=== PATIENT | male | born 1965 | race Caucasian/White ===

== ENCOUNTER 2020-08-19 12:48 | Outpatient (NON) | payer BC, SELFPAY ==
[2020-08-25 12:56] LABS: SARS-CoV-2 RNA PCR Positive
== END 2020-08-19 12:49 ==
PROVIDERS: PCP Family Medicine; Visit Provider Family Medicine
DX: U07.1 COVID-19 (principal)
CPT/HCPCS: 87635; C9803; U0003

== ENCOUNTER 2022-10-25 09:53 | Outpatient (CLI) | payer BC, SELFPAY ==
[2022-10-25 10:43] LABS: Influenza A QL RT-PCR Negative (Negative); Influenza B QL RT-PCR Negative (Negative); RSV RNA, RT-PCR Negative (Negative); SARS-CoV-2 RNA PCR Negative
== END 2022-10-25 09:54 | disposition home or self-care (01) ==
LOC: ANHLAB 09:55
PROVIDERS: PCP Family Medicine; Visit Provider Physician Assistant
DX: R50.9 Fever, unspecified (principal); Z20.822 Contact with and (suspected) exposure to COVID-19
CPT/HCPCS: 87637

== ENCOUNTER 2023-11-13 09:08 | Outpatient (CLI) | payer BC, SELFPAY ==
--- NOTE | 2023-11-30 08:48 | WPDSLEEPSTUD ---
Sleep Study Date of Study: 11/13/23 Ordering Provider: Phylicia Eduardo PA-C Interpreting Physician: Yamel Ray MD Sleep Study Type: Polysomnogram Height: 1.78 m Weight: 158.757 kg Body Mass Index: 50.2 Neck Circumference (inches): 20 [place]: 14 Reason for Sleep Study Known TWYLA, needs new equipment; hypersomnolence Sleep History Carroll Reyes is a 58-year-old man with obstructive sleep apnea who has an old device, over 20 years old, needs to have it replaced. He uses CPAP every night although he feels restless on waking up. Compliance cannot be obtained from his machine. He frequently awakens from sleep feeling short of breath. He rarely wakes at night with heartburn, belching or coughing.??He frequently snores, frequently snores loudly enough that others complain. He frequently has trouble sleeping when he has a cold. He frequently wakes up gasping for breath during the night. He frequently has breathing problems at night. He rarely sweats excessively at night. He rarely notices his heart pounding or beating irregularly during the night. He frequently falls asleep during the day. He frequently falls asleep involuntarily, rarely falls asleep while driving. He rarely experiences loss of muscle tone with strong emotion. He occasionally has daytime difficulties due to excessive sleepiness. He frequently has daytime difficulty at work due to excessive sleepiness. He frequently feels paralyzed on waking or falling asleep. He frequently experiences vivid dreams upon waking or falling asleep. He frequently feels afraid of going to sleep. He rarely has nightmares. He frequently recalls his dreams. He frequently has thoughts racing through his mind. He rarely feels sad or depressed. He rarely feels anxiety. He frequently notices parts of his body jerk. He frequently kicks during the night. He rarely feels crawling or aching feelings in his legs. He rarely feels leg pain at night. He constantly has morning jaw pain, and constantly grinds his teeth at night. He occasionally feels bothered by pain during the day, occasionally awakened by pain during the night. He occasionally wakes up feeling stiff in the morning, and he occasionally wakes feeling sore or achy. He occasionally awakens with pain in his neck, spine, or joints. Normal bedtime is between 10 p.m. and midnight, taking 1 hour to fall asleep, typically waking between 2 and 3 times at night to go to the bathroom and then he reads. He may stay awake for an hour. His normal wake time is 7:00 a.m. during the week. On weekends, bedtime is midnight, wake time is between 8:00 a.m. and 9:00 a.m.. He does not take naps during the afternoon or evening. A short nap lasting 10-15 minutes is not refreshing. He is drowsy for an hour after waking. Habits:??Tobacco: Former smoker, quit decades ago Caffeine: 3 cups of coffee a day. Alcohol: none Recreational substances: none PMFSH Past Medical History Medical History Anxiety Cancer of sigmoid Erectile dysfunction Essential (primary) hypertension H/O: gout Low ferritin Mild episode of recurrent major depressive disorder Mixed hyperlipidemia Obstructive sleep apnea Vitamin B12 deficiency Vitamin D deficiency Surgical History Surgical History History of gastric restrictive surgery History of reversal of ileostomy (~2013) Family History Family History Father Hypertension Other Family history of arthritis Family history of heart disease in male family member before age 55 Family history of malignant neoplasm Social History Social History Smoking packs per day: 2 Smoking cigarettes per day: 40.0 Years smoked: 20 Smoking pack-years: 40.00 Smoking status: Former smoker Tobacco type: cigarettes
[2023-12-01 18:29] VITALS: BMI 50.2
--- NOTE | 2023-12-04 14:18 | SLEEP ---
Pt is being credited study from 11/13/2023, due to technical issues w/equipment. Tech was in/out of room and pt not able to get to sleep. Pt states he did not know he would be with out CPAP during the study. Calls were made to [facility] and they stated he has not received anything from them since 2019. At that time we were unable to get a download from them on his card. Dr Ray has stated he can do a CPAP titration study w/sleep aid if we obtain a current 30 day download and he is compliant. We have that, I have called Dr Gomez's office for an updated order/auth. We will schedule patient when this is obtained. Pt is aware of everything.
== END 2023-11-14 03:53 | disposition home or self-care (01) ==
PROVIDERS: PCP Family Medicine; Visit Provider Physician Assistant
DX: G47.33 Obstructive sleep apnea (adult) (pediatric) (principal)
CPT/HCPCS: 95810; 99199

== ENCOUNTER 2023-11-30 11:43 | Emergency (ER) | payer BC, SELFPAY ==
--- NOTE | ~2023-11-30 | XR_ITS ---
Right Forearm AP and lateral views of the right forearm were performed. Clinical History: Foreign body, dog bite Findings: No fracture or dislocation is seen. Osseous alignment in anatomic. Joint spaces are prese rved. There is subcutaneous soft tissue edema over the extensor aspect of the forearm. No definite ra diopaque foreign body. Impression: Subcutaneous soft tissue edema at the extensor aspect of the forearm. No definite radiopaque foreign body. No osseous or articular abnormality. Reviewed, dictated and finalized at [facility]. SITE SPECIALIST Impression: Subcutaneous soft tissue edema at the extensor aspect of the forearm. No defini te radiopaque foreign body. No osseous or articular abnormality.
[2023-11-30 11:48] VITALS: BP 183/108; PULSE 110; RESP 20; TEMP 36.6; O2SAT 97
[2023-11-30] MEDS: HYDROcodone/acetaminophen (*CRX) 5-325 MG TABLET 1 TAB PO (12:38)
--- NOTE | 2023-11-30 13:17 | ED.GENADULT ---
HPI - General Adult General Chief complaint: Animal Bite Stated complaint: dog bite Time Seen by Provider: 11/30/23 12:14 History of Present Illness HPI narrative: patient is a 58-year-old male who presents to the ER with reports of being bit by his dog. It was a pit bull. Is up-to-date on its shots according to his daughter. The dog is owned by his daughter but lives in the home with him. He was reaching for a candy wrapper when the dog bit him in the right forearm and the right posterior chest. It is in the posterior axillary line. No numbness or tingling. His tetanus shot is up-to-date. He has normal strength and range of motion of his hand and wrist. The dog has bit him once previous. Related Data Home Medications Medication Instructions Recorded Confirmed calcium-mag oxide-vitamin D3 250 1 cap PO BID 10/16/19 10/19/23 mg-125 mg-100 unit capsule (Coral Calcium) cyanocobalamin (vitamin B-12) 1,000 mcg IM MONTHLY 10/16/19 10/19/23 1,000 mcg/mL injection kit (B-12 Compliance) multivitamin (Chewable-Cassie tablet) 1 tablet PO DAILY 10/16/19 10/19/23 buspirone 10 mg tablet 10 mg PO BID 11/10/22 10/19/23 Allergies Allergy/AdvReac Type Severity Reaction Status Date / Time No Known Allergies Allergy Verified 11/30/23 11:51 Review of Systems Constitutional: Constitutional: Reports no additional constitutional complaints Musculoskeletal: Musculoskeletal: Reports no additional musculoskeletal complaints Integumentary/Breasts: Skin/Breast: Denies erythema and Denies rash Comments: Bite wound Neurologic: Reports system reviewed and no additional complaints, except as documented [facility] Past Medical History Medical History Anxiety Cancer of sigmoid Erectile dysfunction Essential (primary) hypertension H/O: gout Low ferritin Mild episode of recurrent major depressive disorder Mixed hyperlipidemia Obstructive sleep apnea Vitamin B12 deficiency Vitamin D deficiency Surgical History Surgical History History of gastric restrictive surgery History of reversal of ileostomy (~2013) Family History Family History Father Hypertension Other Family history of arthritis Family history of heart disease in male family member before age 55 Family history of malignant neoplasm Social History Social History Smoking packs per day: 2 Smoking cigarettes per day: 40.0 Years smoked: 20 Smoking pack-years: 40.00 Smoking status: Former smoker Tobacco type: cigarettes Second hand tobacco smoke exposure: Yes Smoking end date: 11/06/98 Alcohol intake: current Alcohol use details: RARE Substance use: never Substance use type: does not use Lack of Transportation: No Lack of Food: Never True Current Housing: I Have Housing Concerned About Future Housing: No Difficulty Paying Gas/Electric Bills: No Difficulty Paying for Meds: No Currently Unemployed: No Education: Master's Degree or Higher Difficulty w/ Childcare or Family Care: No Living arrangements: with family Occupation/Education: occupation Gender identity (if verbalized by the patient): Male Spiritual care concerns: No Agree to blood products: Yes Exam Narrative: GENERAL: Well-appearing, well-nourished, and in no acute distress. HEAD: Normocephalic, atraumatic. ENT: Mucous membranes moist EXTREMITIES: Normal range of motion. No edema. SKIN: Warm, dry. Right forearm bite wound with several areas that are deep and poorly approximated. There is superficial abrasions from bite wound to the right infra-axillary area posteriorly. NEURO: Alert and oriented x3. PSYCH: Normal mood and affect. Course Course Emergency Course: Patient resting comfortably. Areas of the b
== END 2023-11-30 14:00 | disposition home or self-care (01) ==
PROVIDERS: Emergency Provider Emergency Medicine; PCP Family Medicine
DX: S51.851A Open bite of right forearm, initial encounter (principal); I10 Essential (primary) hypertension; M10.9 Gout, unspecified; E78.2 Mixed hyperlipidemia; E53.8 Deficiency of other specified B group vitamins; E55.9 Vitamin D deficiency, unspecified; G47.33 Obstructive sleep apnea (adult) (pediatric); F41.9 Anxiety disorder, unspecified; F33.9 Major depressive disorder, recurrent, unspecified; Z87.891 Personal history of nicotine dependence; Z85.038 Personal history of other malignant neoplasm of large intestine; W54.0XXA Bitten by dog, initial encounter
CPT/HCPCS: 12001; 73090; 99283; A9270

== ENCOUNTER 2023-12-12 09:03 | Outpatient (CLI) | payer BC, SELFPAY ==
--- NOTE | 2024-01-02 14:23 | WPDSLEEPSTUD ---
Sleep Study Date of Study: 12/12/23 Ordering Provider: Marcela Gomez MD Interpreting Physician: Helen Yusuf, Sleep Study Type: CPAP Titration Height: 1.73 m Weight: 158.757 kg Body Mass Index: 53.1 Neck Circumference (inches): 18.5 [place]: 14 Reason for Sleep Study There was an attempted polysomnogram on 11/13/2023 but due to technical difficulty we were unable to get enough data and the patient was unable to sleep. Sleep History Carroll Reyes is a 58-year-old man with? obstructive sleep apnea who has an old device, over 20 years old, needs to have it replaced.? He uses CPAP every night although he feels restless on waking up.? Compliance cannot be obtained from his machine.? He frequently awakens from sleep feeling short of breath. He rarely wakes at night with heartburn, belching or coughing.??He frequently snores, frequently snores loudly enough that others complain. He frequently has trouble sleeping when he has a cold. He frequently wakes up gasping for breath during the night. He frequently has breathing problems at night. He rarely sweats excessively at night. He rarely notices his heart pounding or beating irregularly during the night. He frequently falls asleep during the day. He frequently falls asleep involuntarily, rarely falls asleep while driving. He rarely experiences loss of muscle tone with strong emotion. He occasionally has daytime difficulties due to excessive sleepiness. He frequently has daytime difficulty at work due to excessive sleepiness.? He frequently feels paralyzed on waking or falling asleep. He frequently experiences vivid dreams upon waking or falling asleep. He frequently feels afraid of going to sleep. He rarely has nightmares. He frequently recalls his dreams. He frequently has thoughts racing through his mind. He rarely feels sad or depressed. He rarely feels anxiety. He?frequently notices parts of his body jerk. He?frequently kicks during the night.?He rarely feels crawling or aching feelings in his legs. He rarely feels leg pain at night. He?constantly has morning jaw pain,? and?constantly grinds his teeth at night.? He occasionally feels bothered by pain during the day, occasionally awakened by pain during the night. He occasionally wakes up feeling stiff in the morning, and he? occasionally wakes feeling sore or achy.? He? occasionally awakens with pain in his neck, spine, or joints. Normal bedtime is between 10 p.m. and midnight, taking 1 hour to fall asleep, typically waking between 2 and 3 times at night to go to the bathroom and then he reads.? He may stay awake for an hour.? His normal wake time is 7:00 a.m. during the week.? On weekends, bedtime is midnight, wake time is between 8:00 a.m. and 9:00 a.m..? He does not take naps during the afternoon or evening.? A short nap lasting 10-15 minutes is not refreshing.? He is drowsy for an hour after waking. Habits:??Tobacco:? Former smoker, quit decades ago? ? ? Caffeine: 3 cups of coffee a day. ? Alcohol: none ? ? Recreational substances: none PMFSH Past Medical History Medical History Anxiety Cancer of sigmoid Erectile dysfunction Essential (primary) hypertension H/O: gout Low ferritin Mild episode of recurrent major depressive disorder Mixed hyperlipidemia Obstructive sleep apnea Vitamin B12 deficiency Vitamin D deficiency Surgical History Surgical History History of gastric restrictive surgery History of reversal of ileostomy (~2013) Family History Family History Father Hypertension Other Family history of arthritis Family history of heart disease in male family member before age 55 Family history of malignant neoplasm Social History Social History Smoking packs per day: 2 Smoking cigarettes per day:
[2024-01-02 14:25] VITALS: BMI 53.1
== END 2023-12-13 07:01 | disposition home or self-care (01) ==
LOC: ANHCSM 09:05
PROVIDERS: PCP Family Medicine; Visit Provider Family Medicine
DX: G47.33 Obstructive sleep apnea (adult) (pediatric) (principal); G47.61 Periodic limb movement disorder
CPT/HCPCS: 95811

== ENCOUNTER 2024-02-13 07:53 | Emergency (ER) | payer BC, SELFPAY ==
--- NOTE | ~2024-02-13 | XR_ITS ---
EXAMINATION: XR tibia fibula LT 2V DATE: 02/13/2024 09:14 INDICATION: Dog bite with puncture wound at the lateral side of the left lower leg TECHNIQUE: Anteroposterior and lateral views of the left tibia and fibula were obtained. COMPARISON: None. FINDINGS: Alignment is normal. No fracture. Joint spaces are normal. Prominent enthesophytes at the proximal di stal patellar tendon. No left knee joint effusion. Small focus of lucent soft tissue gas and minimal subcutaneous edema at the lateral aspect of the proximal left calf consistent with reported history o f dog bite with puncture wound. No radiopaque foreign bodies. IMPRESSION: 1. No radiopaque foreign bodies or acute osseous abnormality. Reviewed, dictated and finalized at location B.
--- NOTE | ~2024-02-13 | XR_ITS ---
EXAMINATION: XR hand LT min 3V DATE: 02/13/2024 09:13 INDICATION: Dog bite with puncture wound at the dorsum of the hand at the level of the fourth metacar pal. TECHNIQUE: Posteroanterior, oblique and lateral views of the left hand were obtained. COMPARISON: None. FINDINGS: Bone alignment is normal. No fracture. Mild osteoarthritis at the distal radioulnar, triscaphe, first carpometacarpal and a few predominant distal interphalangeal joints. Soft tissue swelling with small amount of lucent soft tissue gas at the ulnar/dorsal aspect of the hand consistent with their report ed history of a puncture wound. No radiopaque foreign bodies. IMPRESSION: 1. No radiopaque foreign bodies or acute osseous abnormality. Reviewed, dictated and finalized at location B.
[2024-02-13 08:07] VITALS: BP 165/88; PULSE 83; RESP 20; TEMP 36.9; O2SAT 97
[2024-02-13] MEDS: ACETAMINOPHEN 325 MG TABLET 650 MG PO (08:25)
[2024-02-13] MEDS: MORPHINE SULFATE INJ (*CRX) 10 MG/ML AMP 6 MG IM (09:04)
[2024-02-13 09:38] VITALS: BP 155/87; PULSE 74; RESP 15; O2SAT 96
--- NOTE | 2024-02-13 10:21 | ED.ANIMALBIT ---
HPI - Animal Bite General Chief Complaint: Animal Bite Stated Complaint: dog bite Time Seen by Provider: 02/13/24 08:03 Source: patient Mode of arrival: ambulatory Limitations: no limitations History of Present Illness HPI narrative: 58-year-old with a history of hypertension, gout here with complaints of dog bite to his right hand and left calf sustained this morning. Patient states that is a rescue dog which is completely immunized. In the also states that he is up-to-date on his tetanus. He had similar bite 2 months ago. Onset (ago): hour(s) (1) Animal: dog Description of animal: household pet Mechanism: bite Location - Extremities: Left: lower leg and Right: hand Pain description: constant Context: unprovoked Associated symptoms: none Related Data Patient tetanus UTD: Yes Home Medications Medication Instructions Recorded Confirmed calcium-mag oxide-vitamin D3 250 1 cap PO BID 10/16/19 01/18/24 mg-125 mg-100 unit capsule (Coral Calcium) cyanocobalamin (vitamin B-12) 1,000 mcg IM MONTHLY 10/16/19 01/18/24 1,000 mcg/mL injection kit (B-12 Compliance) multivitamin (Chewable-Cassie tablet) 1 tablet PO DAILY 10/16/19 01/18/24 buspirone 10 mg tablet 10 mg PO BID 11/10/22 01/18/24 Allergies Allergy/AdvReac Type Severity Reaction Status Date / Time bee venom protein (honey bee) Allergy Swelling Verified 02/13/24 07:54 [bees] Review of Systems Review of Systems: All systems reviewed & are unremarkable except as noted in HPI and below Constitutional: Constitutional: Reports no additional constitutional complaints Eyes: Eyes: Reports no additional eye complaints ENT: Reports system reviewed and no additional complaints, except as documented Cardiovascular: Cardiovascular: Reports no additional cardiovascular complaints Respiratory: Respiratory: Reports no additional respiratory complaints Gastrointestinal: Gastrointestinal: Reports no additional gastrointestinal complaints Musculoskeletal: Musculoskeletal: Reports as per HPI Neurologic: Reports system reviewed and no additional complaints, except as documented Psychiatric: Psychiatric: Reports no additional psychiatric complaints PMFSH Past Medical History Medical History Anxiety Cancer of sigmoid Erectile dysfunction Essential (primary) hypertension H/O: gout Low ferritin Mild episode of recurrent major depressive disorder Mixed hyperlipidemia Obstructive sleep apnea Prediabetes Vitamin B12 deficiency Vitamin D deficiency Surgical History Surgical History History of gastric restrictive surgery History of reversal of ileostomy (~2013) Family History Family History Father Hypertension Other Family history of arthritis Family history of heart disease in male family member before age 55 Family history of malignant neoplasm Social History Social History Smoking packs per day: 2 Smoking cigarettes per day: 40.0 Years smoked: 20 Smoking pack-years: 40.00 Smoking status: Former smoker Tobacco type: cigarettes Second hand tobacco smoke exposure: Yes Smoking end date: 11/06/98 Alcohol intake: current Alcohol use details: RARE Substance use: never Substance use type: does not use Lack of Transportation: No Lack of Food: Never True Current Housing: I Have Housing Concerned About Future Housing: No Difficulty Paying Gas/Electric Bills: No Difficulty Paying for Meds: No Currently Unemployed: No Education: Master's Degree or Higher Difficulty w/ Childcare or Family Care: No Living arrangements: with family Occupation/Education: occupation Gender identity (if verbalized by the patient): Male Spiritual care concerns: No Agree to blood products: Yes Exam Narrative:
== END 2024-02-13 10:49 | disposition home or self-care (01) ==
PROVIDERS: Emergency Provider Family Medicine; PCP Family Medicine
DX: S61.451A Open bite of right hand, initial encounter (principal); S81.852A Open bite, left lower leg, initial encounter; I10 Essential (primary) hypertension; E78.2 Mixed hyperlipidemia; E53.8 Deficiency of other specified B group vitamins; E55.9 Vitamin D deficiency, unspecified; G47.33 Obstructive sleep apnea (adult) (pediatric); M10.9 Gout, unspecified; F33.9 Major depressive disorder, recurrent, unspecified; F41.9 Anxiety disorder, unspecified; Z85.038 Personal history of other malignant neoplasm of large intestine; Z87.891 Personal history of nicotine dependence; W54.0XXA Bitten by dog, initial encounter
CPT/HCPCS: 12004; 73130; 73590; 96372; 99284; A9270; J2270

== ENCOUNTER 2024-03-28 09:37 | Emergency (ER) | payer BC, SELFPAY ==
--- NOTE | ~2024-03-28 | CT_ITS ---
EXAMINATION: CT abdomen pelvis w con DATE: 03/28/2024 11:59 INDICATION: Abdominal pain. History of rectal cancer. TECHNIQUE: Computed tomography (CT) of the abdomen and pelvis was performed with 100 CC Omnipaque 350 intravenous contrast. Automated exposure control and iterative reconstruction technique were employe d. Exam dose: 1829.81 mGy-cm total exam DLP. COMPARISON: 08/16/2016 CT chest abdomen pelvis FINDINGS: The lung bases are clear. Normal heart size. No pericardial or pleural effusion. Small sliding hiatal hernia. Diffuse hepatic steatosis. No hepatic space-occupying mass lesion. No bowel wall thickening or perich olecystic fluid or fat stranding. No bile duct or pancreatic duct dilatation. No pancreatic mass lesi on or calcification. Normal splenic size. Normal morphology of the adrenal glands. There is an approximately 3 mm left ureter vesicle junction calculus with left nephromegaly, mild lef t hydroureteronephrosis and prominent perinephric and periureteral stranding. Approximately 2 mm nonobstructing left renal calculus. No other urinary tract calculi or any hydroure teronephrosis on the right. The urinary bladder is relatively evacuated. Minimal prostate calcificati on. Normal caliber and mild atherosclerotic calcification of the abdominal aorta. No intraperitoneal or r etroperitoneal or pelvic mass lesion or adenopathy or ascites. Status post gastric bypass surgery. Suture lines are noted at the rectosigmoid and distal sigmoid area. Normal appendix.. No bowel obstruction or intraperitoneal free air is evident. Small bilateral fat-containing hernias, larger on the right. Small fat-containing umbilical hernia. Approximately 3 cm wide mid anterior right abdominal wall hernia containing 2 loops of small bowel; t his hernia is situated at the level of and 9 cm to the right of the umbilicus. No suspicious osteolytic or osteoblastic lesions. IMPRESSION: 3 mm left ureterovesical junction calculus with mild left hydroureteronephrosis, perinephric and nitza ureteral stranding, left nephromegaly 2 mm nonobstructing left renal calculus Status post gastric bypass surgery with postoperative change at the rectosigmoid. Diffuse hepatic steatosis Small sliding hiatal hernia Normal appendix 3. Similar wide mid anterior right abdominal wall hernia containing 2 loops of nonobstructed small donavan wel Reviewed, dictated and finalized at [facility]. Reviewed, dictated and finalized at location [facility]. IMPRESSION: 3 mm left ureterovesical junction calculus with mild left hydroureteronephrosis , perinephric and periureteral stranding, left nephromegaly 2 mm nonobstructing left renal calculus Status post gastric bypass surgery with postoperative change at the rectosigmoi d. Diffuse hepatic steatosis Small sliding hiatal hernia Normal appendix 3. Similar wide mid anterior right abdominal wall hernia containing 2 loops of nonobstructed small bowel
[2024-03-28 09:38] VITALS: BP 209/89; PULSE 79; RESP 16; TEMP 36.5; O2SAT 100
[2024-03-28 10:43] LABS: Basophils Percent Auto 0.1 % (0.2-1.2); Eosinophils Percent Auto 0.1 % (0-4.4); Hematocrit 47.1 % (42.0-52.0); Hemoglobin 14.8 g/dL (14.0-18.0); Immature Granulocyte Absolute 0.01 K/mm3 (0.00-0.031); Immature Granulocyte Percent A 0.1 % (0-0.5); Lymphocytes Absolute Auto 0.46 K/mm3 (0.9-3.2); Mean Corpuscular HGB Conc 31.4 g/dl (32-36); Mean Corpuscular Hemoglobin 26.6 pg (26-34); Mean Corpuscular Volume 84.6 fl (80-100); Mean Platelet Volume 8.9 fl (7.4-10.4); Monocytes Absolute Auto 0.4 K/mm3 (0.1-0.6); Monocytes Percent Auto 5.4 % (2.6-8.5); Neutrophils Absolute Auto 6.7 K/mm3 (1.3-6.7); Neutrophils Percent Auto 88.3 % (45.5-73.1); Platelet Count Result 222 k/mm3 (150-375); Red Blood Count 5.57 M/mm3 (4.6-6.20); Red Cell Distribution Width 14.3 % (11.5-14.5); White Blood Count 7.6 K/mm3 (4.5-10.0)
[2024-03-28 10:52] LABS: Alanine Aminotransferase 37 U/L (6-50); Albumin Level 4.5 g/dL (3.5-5.1); Alkaline Phosphatase 72 U/L (38-126); Anion Gap 9 mmol/L (4-12); Aspartate Amino Transferase 35 U/L (17-59); Bilirubin,Total 0.7 mg/dL (0.2-1.3); Blood Urea Nitrogen 10 mg/dL (9-20); Calcium 8.5 mg/dL (8.4-10.2); Carbon Dioxide 25 mmol/L (22-30); Chloride 108 mmol/L (98-107); Estimated CRCL calculation 97 ml/min; Estimated Glomerular Filt Rate > 60; Glucose 156 mg/dL (65-110); Lipase 67 U/L (23-300); Sodium 142 mmol/L (137-145)
[2024-03-28] MEDS: ONDANSETRON INJ 4 MG/2 ML VIAL IV PUSH (11:37)
[2024-03-28] MEDS: MORPHINE SULFATE (*CRX) 4 MG/ML INJ IV PUSH (11:43)
[2024-03-28 11:46] VITALS: BP 170/80; PULSE 105; RESP 16; O2SAT 99
[2024-03-28] MEDS: SODIUM CHLORIDE 0.9% IV 1,000 ML 999 ML IV CONT (12:15)
--- NOTE | 2024-03-28 12:16 | ED.ABDPAIN ---
HPI - Abdominal Pain General Chief Complaint: Abdominal Pain Stated Complaint: abd pain Time Seen by Provider: 03/28/24 10:25 Source: patient Mode of arrival: ambulatory Limitations: no limitations History of Present Illness HPI narrative: Patient is a 58-year-old male who presents the ED with report of lower abdominal discomfort. Patient reports pain began around 5:00 a.m. this morning. Present throughout both lower abdomen, radiates around to his left lower back. The pain has been constant since onset. He developed nausea and vomiting. Notes that he was unable to keep down his pain medication or high blood pressure medication. Does report diarrhea for past 2 days, denies rectal bleeding or melena, fevers, dysuria, hematuria. He does have history of kidney stones. Patient is currently on semaglutide for weight loss. Related Data Home Medications Medication Instructions Recorded Confirmed calcium-mag oxide-vitamin D3 250 1 cap PO BID 10/16/19 02/23/24 mg-125 mg-100 unit capsule (Coral Calcium) cyanocobalamin (vitamin B-12) 1,000 mcg IM MONTHLY 10/16/19 02/23/24 1,000 mcg/mL injection kit (B-12 Compliance) multivitamin (Chewable-Cassie tablet) 1 tablet PO DAILY 10/16/19 02/23/24 buspirone 10 mg tablet 10 mg PO BID 11/10/22 02/23/24 Allergies Allergy/AdvReac Type Severity Reaction Status Date / Time bee venom protein (honey bee) Allergy Swelling Verified 03/28/24 09:41 [bees] Review of Systems Review of Systems: CONSTITUTIONAL: Denies fever, chills, or sweats. CARDIOVASCULAR: Denies chest pain. RESPIRATORY: Denies dyspnea. GASTROINTESTINAL: See HPI. GENITOURINARY: Denies dysuria or hematuria. MUSCULOSKELETAL: See HPI. All systems reviewed & are unremarkable except as noted in HPI and below PMFSH Past Medical History Medical History Anxiety Cancer of sigmoid Erectile dysfunction Essential (primary) hypertension H/O: gout Low ferritin Mild episode of recurrent major depressive disorder Mixed hyperlipidemia Obesity, morbid, BMI 40.0-49.9 Obstructive sleep apnea Prediabetes Vitamin B12 deficiency Vitamin D deficiency Surgical History Surgical History History of gastric restrictive surgery History of reversal of ileostomy (~2013) Family History Family History Father Hypertension Other Family history of arthritis Family history of heart disease in male family member before age 55 Family history of malignant neoplasm Social History Social History Smoking packs per day: 2 Smoking cigarettes per day: 40.0 Years smoked: 20 Smoking pack-years: 40.00 Smoking status: Former smoker Tobacco type: cigarettes Second hand tobacco smoke exposure: Yes Smoking end date: 11/06/98 Alcohol intake: current Alcohol use details: RARE Substance use: never Substance use type: does not use Lack of Transportation: No Lack of Food: Never True Current Housing: I Have Housing Concerned About Future Housing: No Difficulty Paying Gas/Electric Bills: No Difficulty Paying for Meds: No Currently Unemployed: No Education: Master's Degree or Higher Difficulty w/ Childcare or Family Care: No Living arrangements: with family Occupation/Education: occupation Gender identity (if verbalized by the patient): Male Spiritual care concerns: No Agree to blood products: Yes Exam Narrative: GENERAL: Uncomfortable appearing, morbidly obese with BMI of 48.9, non-toxic, in mild acute distress due to pain. HEAD: Normocephalic, atraumatic. RESPIRATORY: Airway patent, respirations nonlabored. Clear to auscultation bilaterally, no rales, rhonchi, wheezing. CARDIOVASCULAR: Regular rate and rhythm without murmurs, rubs, or gal
[2024-03-28] MEDS: KCL 20 MEQ/SW 100 ML 100 ML 50 MEQ IVPB (12:17)
--- NOTE | 2024-03-28 12:46 | PC.NURSE ---
Lab called to add on magnesium level
[2024-03-28 13:00] LABS: Magnesium 1.7 mg/dL (1.6-2.3)
[2024-03-28 13:12] LABS: Appearance Urine Cloudy (Clear); Bacteria Urine None Seen /hpf; Bilirubin Urine Negative (Negative); Blood Urine 3+ (Negative); Color Urine Yellow (Yellow); Glucose Urine UA Negative (Negative); Ketones Urine Negative (Negative); Leukocyte Esterase Ur Trace LEU/UL (Negative); Need Manual Microscopic Reviewed; Nitrate Urine Negative (Negative); Protein Urine Trace mg/dL (Negative); RBC Urine >100 /hpf (0-2); Specific Grav Ur 1.023 (1.001-1.035); Squamous Epithelial Cell Urine None Seen /hpf (Few); WBC Urine 0-5 /hpf (0-3); pH Urine 5.5 (5.0-9.0)
[2024-03-28 13:15] LABS: Add Urine Microscopic? YES
[2024-03-28] MEDS: KETOROLAC 30 MG/ML VIAL (*BKC) IV PUSH (13:22)
[2024-03-28] MEDS: POTASSIUM CHLORIDE 20 MEQ ER TABLET 40 MEQ PO (13:22)
[2024-03-28 14:32] VITALS: BP 159/83; PULSE 100; RESP 15; TEMP 36.9; O2SAT 99
== END 2024-03-28 14:34 | disposition home or self-care (01) ==
PROVIDERS: Student in an Organized Health Care Education/Training Program; Emergency Provider Physician Assistant; PCP Family Medicine
DX: N13.2 Hydronephrosis with renal and ureteral calculous obstruction (principal); I10 Essential (primary) hypertension; E78.2 Mixed hyperlipidemia; E66.01 Morbid (severe) obesity due to excess calories; Z68.42 Body mass index [BMI] 45.0-49.9, adult; E53.8 Deficiency of other specified B group vitamins; E55.9 Vitamin D deficiency, unspecified; R73.03 Prediabetes; M10.9 Gout, unspecified; G47.33 Obstructive sleep apnea (adult) (pediatric); F41.9 Anxiety disorder, unspecified; Z98.84 Bariatric surgery status; Z87.442 Personal history of urinary calculi; Z85.038 Personal history of other malignant neoplasm of large intestine; Z87.891 Personal history of nicotine dependence; K76.0 Fatty (change of) liver, not elsewhere classified; K44.9 Diaphragmatic hernia without obstruction or gangrene; K43.9 Ventral hernia without obstruction or gangrene
CPT/HCPCS: 36415; 74177; 80053; 81001; 83690; 83735; 85025; 96365; 96366; 96375; 99284; A9270; J1885; J2270; J2405; J3480; J7030; Q9967

== ENCOUNTER 2024-04-09 10:41 | Outpatient (CLI) | payer BC, SELFPAY ==
--- NOTE | ~2024-04-09 | CT_ITS ---
Non-contrast CT scan of the Abdomen and Pelvis Clinical indication: Left ureteral stone Technique: 2.5 mm axial scans were obtained through the abdomen and pelvis without intravenous or or al contrast. Dose reduction technique was used on this scan by utilizing automated exposure control a nd iterative reconstruction technique. The dose-length product (DLP) was 1151.87 mGy-cm. COMPARISON: 03/28/2024 Findings: Images through the lung bases reveal no abnormalities. There is no evidence of renal or ureteral calculi. The kidneys and the ureters are nondilated. There is diffuse hepatic steatosis. The spleen, pancreas, gallbladder, and adrenals appear normal. T here is no aortic aneurysm. There is no evidence of bowel obstruction. There is evidence of prior gastric surgery. Rectosigmoid a nastomosis noted. Large right-sided spigelian/incisional hernia is present, containing moderate mesen teric fat and multiple small bowel loops. Images through the pelvis were performed. There is no evidence of ascites or lymphadenopathy. Urinary bladder unremarkable. No pelvic mass seen. No ascites. Impression: No renal, ureteral, or bladder stone. No hydronephrosis. Large right-sided spigelian/incisional hernia, containing mesenteric fat and multiple bowel loops. No bowel obstruction or bowel wall thickening. Diffuse hepatic steatosis. Reviewed, dictated and finalized at [facility]. Impression: No renal, ureteral, or bladder stone. No hydronephrosis. Large right-sided spigelian/incisional hernia, containing mesenteric fat and mu ltiple bowel loops. No bowel obstruction or bowel wall thickening. Diffuse hepatic steatosis.
== END 2024-04-09 10:42 ==
PROVIDERS: PCP Family Medicine; Visit Provider Physician Assistant
DX: K43.2 Incisional hernia without obstruction or gangrene (principal); K76.0 Fatty (change of) liver, not elsewhere classified
CPT/HCPCS: 74176

== ENCOUNTER 2024-09-24 10:45 | Outpatient (CLI) | payer BC, SELFPAY ==
--- NOTE | ~2024-09-24 | MM_ITS ---
EXAMINATION: MM diagnostic jose luis BI w chrissy HISTORY: Bilateral breast tenderness/lumpiness TECHNIQUE: 3-D tomosynthesis images of the breasts were performed and synthetic 2-D images were gener ated. CAD analysis was submitted and interpreted. COMPARISON: None BREAST PARENCHYMAL COMPOSITION:Not Dense. The breasts are almost entirely fatty FINDINGS: No suspicious mass lesion or microscopic calcifications in either breast. There is mild rig ht gynecomastia. IMPRESSION: No mammographic evidence for malignancy. Mild right gynecomastia. BI-RADS Category 2: Benign finding(s). Reviewed, dictated and finalized at location . RATORY TECHNICIAN
== END 2024-09-24 10:46 | disposition home or self-care (01) ==
PROVIDERS: PCP Family Medicine; Visit Provider Family Medicine
DX: N63.10 Unspecified lump in the right breast, unspecified quadrant (principal)
CPT/HCPCS: 77062; 77066; G0279

== ENCOUNTER 2025-05-14 06:07 | Emergency (ER) | payer BC, SELFPAY ==
--- NOTE | ~2025-05-14 | CT_ITS ---
Non-contrast CT scan of the Abdomen and Pelvis Clinical indication: Flank pain Technique: 2.5 mm axial scans were obtained through the abdomen and pelvis without intravenous or or al contrast. Dose reduction technique was used on this scan by utilizing automated exposure control a nd iterative reconstruction technique. The dose-length product (DLP) was 1681.08 mGy-cm. COMPARISON: 04/09/2024 Findings: Images through the lung bases reveal no abnormalities. 2 mm distal left ureteral stone present with mild left hydroureteronephrosis. No right renal or right ureteral stone. No right hydronephrosis. There is diffuse hepatic steatosis. The spleen, pancreas, gallbladder, and adrenals appear normal. T here is no aortic aneurysm. There is no evidence of bowel obstruction. There is a large right-sided spigelian hernia containing m esenteric fat and several small bowel loops. Rectosigmoid anastomosis noted. Images through the pelvis were performed. There is no evidence of ascites or lymphadenopathy. Urinary bladder collapsed around a Crooks catheter. No pelvic mass evident. No ascites. Impression: 2 mm distal left ureteral stone with mild left hydroureteronephrosis. Diffuse hepatic steatosis. Large right-sided spigelian hernia containing mesenteric fat and several small bowel loops. No bowel obstruction. Reviewed, dictated and finalized at location . Impression: 2 mm distal left ureteral stone with mild left hydroureteronephrosis. Diffuse hepatic steatosis. Large right-sided spigelian hernia containing mesenteric fat and several small bowel loops. No bowel obstruction.
--- OUTSIDE RECORDS SUMMARY | 2025-05-14 06:09 | XMS_ITS | Referral Summary ---
Author Organization [facility] Address [address] [place] [address] Care Team Providers Care Cooling Tower Technician Name Role Phone Marcela Gomez MD Primary Care Provider Encounters Date Type Department Care Team Description 04/11/2025 9:21 AM CDT - 04/11/2025 11:59 PM CDT Hospital Encounter [facility] - Breast Imaging [address] [place] [id number] Gynecomastia Discharge Disposition: Discharge to home or self care 04/11/2025 9:15 AM CDT Office Visit [facility] [address] [place] [phone] Camryn Kay NP Breast pain in male (Primary Dx); Hypertrophy of male breast; Gynecomastia, male 04/02/2025 Orders Only [facility] [address] [place] [address] 8 [place] [phone] Camryn Kay NP Gynecomastia (Primary Dx) 03/19/2025 Telephone [facility] [address] [place] [address] 8 [place] [phone] Camryn Kay NP Cancel 03/17/2025 4:37 PM CDT - 03/17/2025 11:59 PM CDT Hospital Encounter [facility] [address] [place] [phone] Discharge Disposition: Discharge to home or self care 03/11/2025 Orders Only [facility] [address] [place] [phone] Camryn Kay NP 03/06/2025 Orders Only [facility] [address] [place] [phone] Yesenia Escobar RN Breast pain (Primary Dx); Breast pain in male from Last 3 Months Allergies Active Allergy Reactions Criticality Noted Date Comments Venom-Honey Bee Swelling Medium 05/11/2017 Medications lisinopril (PRINIVIL,ZESTR IL) 20 mg tablet daily. 06/11/2015 Active BD INSULIN SYRINGE 1 mL 25 x 1 syringe 11/21/2018 Active cyanocobalamin (Vitamin B-12) 1,000 mcg/mL injection 11/21/2018 Active CHOLECALCIFEROL , VITAMIN D3, ORAL Take by mouth Active bupropion HCl (WELLBUTRIN ORAL) Take by mouth Active calcium citrate 250 mg calcium tablet tabletIndicatio ns:supplement Take 2 tablets (500 mg total) by mouth daily Active Wegovy 2.4 mg/0.75 mL auto-injector Inject 0.75 mL (2.4 mg total) under the skin every 7 days 10/18/2024 Active Trintellix 10 mg tablet Take 1 tablet (10 mg total) by mouth daily 10/25/2024 Active Active Problems Problem Noted Date Diagnosed Date Binge eating disorder 11/19/2024 Major depression, single episode, in complete re mission 11/19/2024 Rectal cancer 10/06/2020 Overview (10/06/2020): Added automatically from request for surgery [id number] Rectal adenocarcinoma 08/28/2018 History of rectal cancer 05/17/2018 Kidney stones 01/15/2015 Social History Tobacco Use Types Packs/Day Years Used Date Smoking Tobacco: Former Cigarettes 2 11 1 989 - 2000 Passive Smoke Exposure: Past Smokeless Tobacco: Never Tobacco Cessation:Counseling Given: Not Answered Alcohol Use Standard Drinks/Week Comments Yes 0 (1 standard drink = 0.6 oz pur e alcohol) rare AUDIT-C Answer Date Recorded Q1: How often do you have a drink containing alc ohol? Monthly or less 11/19/2024 Q2: How many drinks containi ng alcohol do you have on a typical day when you are drinking? 1 or 2 11/19/2024 Q3: How often do you have si x or more drinks on one occasion? Never 11/19/2024 Sex and Gender Information Value Date Recorded Sex Assigned at Not on file Legal Sex Male 8:45 PM [facility] Gender Identity Not on file Sexual Orientation Not on file Last Filed Vital Signs Vital Sign Reading Time Taken Comments Blood Pressure 198/115 11/19/2024 2:13 PM [facility] Pulse 104 11/19/2024 2:13 PM [facility] Temperature 36 C (96.8 F) 01/07/2021 8:23 AM [facility]IOLOG[facility] Respiratory Rate 22 01/07/2021 8:45 AM [facility] RADIOLOG[facility] Oxygen Saturation 90% 11/19/2024 2:13 PM [facility] RADIOLOG[facility] Inhaled Oxygen Concentration - - Weight 155.4 kg (342 lb 9.6 oz) 04/11/2025 9:06 AM CDT Height 172 cm (5' 7.72) 04/11/2025 9:06 AM CDT Body Mass Index 52.53 04/11/2025 9:06 AM CDT Plan of Treatment Not on file Procedures Procedure Name Priority Date/Time Associated Diagnosis Comments US BREAST BILATERAL LIMITED Schedule Routine, Read Routine (OP Routine) 04/11/2025 10:45 AM CDT Gynecomastia BREAST IMAGING MG DIAGNOSTIC OUTSIDE CONSULT Routine 03/17/2025 4:38 PM CDT COLONOSCOPY 01/07/2021 7:45 AM MEDICAL TRANSCRIPTION RADIOLOGY from Last 3 Months or Most Recently Relevant to Health Maintenance Results * US Breast Bilateral Limited (04/11/2025 10:45 AM CDT) Anatomical Region Laterality Modality Breast Bilateral Ultrasound 04/11/2025 4:06 PM CDT Impressions 04/11/2025 4:06 PM CDT RIGHT greater than LEFT gynecomastia without suspicious sonographic abnormality. Clinical follow-up is recommended. OVERALL FINAL ASSESSMENT: BI-RADS Category 2: Benign. RECOMMENDATION: Continued clinical follow-up is recommended. Dr. Witt discussed the above findings and recommendations with the patient, who expressed her understanding of the management plan. Electronically signed by: Noel Witt MD Narrative 04/11/2025 4:06 PM CDT EXAMINATION: BILATERAL BREAST ULTRASOUND HISTORY: 60-year-old male with RIGHT greater than LEFT subareolar tenderness and swelling. Patient reports switching SSRI medication last October, currently on Trintellix. Patient also reports new palpable area of concern on the RIGHT breast. COMPARISON: Outside mammogram 09/24/2024 TECHNIQUE: Directed ultrasound evaluation of BOTH breasts was performed by a trained corporate tax manager and by Dr. Wtit. ULTRASOUND FINDINGS: Targeted ultrasound within the RIGHT breast in the area of tenderness and palpable concern demonstrates benign-appearing fibroglandular tissue. Targeted ultrasound within the LEFT breast demonstrates similar appearing benign fibroglandular tissue. us Camryn Kay NP IMG MAMMO PROCEDURES Final Result * Breast Imaging DX Outside Consult (03/17/2025 4:38 PM CDT) Anatomical Region Laterality Modality Breast N/A Mammography 03/18/2025 10:5 1 AM CDT Impressions 03/18/2025 11:08 AM CDT Bilateral gynecomastia, right greater than left, without suspicious finding. If clinical exam does not correlate to gynecomastia, then targeted ultrasound in the area of concern can be performed. OVERALL FINAL ASSESSMENT: BI-RADS Category 2: Benign. RECOMMENDATION: Clinical follow-up. If clinical exam does not correlate to gynecomastia, then targeted ultrasound in the area of concern can be performed. NOTE: The findings, conclusions and recommendations within this report do not replace the initial findings, conclusions and recommendations made at the facility where the study was performed based upon the imaging and clinical condition at that time. Review of the prior report and correlation with the clinical history are necessary. The provided images may or may not represent the [place] source data set and thus may contain changes which may lower the sensitivity of the second opinion interpretation. Dictated by: Henry Walker MD, Ph.D The radiology attending physician has personally reviewed this study, and had reviewed and/or edited this written report and agrees with it. Electronically signed by: Eva Coe M.D. Narrative 03/18/2025 11:08 AM CDT EXAMINATION: REVIEW AND INTERPRETATION OF OUTSIDE IMAGING FACILITY PERFORMING OUTSIDE IMAGING: [facility] in [place], [place] EXAM(S) REVIEWED: 1. BILATERAL DIAGNOSTIC MAMMOGRAM WITH TOMOSYNTHESIS, 09/24/2024 DATE OF INTERPRETATION: 03/18/2025 HISTORY: 59-year-old man , with unclear breast history based on limited documentation in the medical record. History of rectal cancer. COMPARISON: None BREAST PARENCHYMAL COMPOSITION: The breasts are almost entirely fatty. FINDINGS: There is mild bilateral flame-shaped gynecomastia, right greater than left. No suspicious mass, calcifications, or architectural distortion are seen in either breast. Procedure Note Eva Coe MD - 03/18/2025 EXAMINATION: REVIEW AND INTERPRETATION OF OUTSIDE IMAGING FACILITY PERFORMING OUTSIDE IMAGING: [facility] in [place], [place] EXAM(S) REVIEWED: 1. BILATERAL DIAGNOSTIC MAMMOGRAM WITH TOMOSYNTHESIS, 09/24/2024 DATE OF INTERPRETATION: 03/18/2025 HISTORY: 59-year-old man , with unclear breast history based on limited documentation in the medical record. History of rectal cancer. COMPARISON: None BREAST PARENCHYMAL COMPOSITION: The breasts are almost entirely fatty. FINDINGS: There is mild bilateral flame-shaped gynecomastia, right greater than left. No suspicious mass, calcifications, or architectural distortion are seen in either breast. IMPRESSION: Bilateral gynecomastia, right greater than left, without suspicious finding. If clinical exam does not correlate to gynecomastia, then targeted ultrasound in the area of concern can be performed. OVERALL FINAL ASSESSMENT: BI-RADS Category 2: Benign. RECOMMENDATION: Clinical follow-up. If clinical exam does not correlate to gynecomastia, then targeted ultrasound in the area of concern can be performed. NOTE: The findings, conclusions and recommendations within this report do not replace the initial findings, conclusions and recommendations made at the facility where the study was performed based upon the imaging and clinical condition at that time. Review of the prior report and correlation with the clinical history are necessary. The provided images may or may not represent the [place] source data set and thus may contain changes which may lower the sensitivity of the second opinion interpretation. Dictated by: Henry Walker MD, Ph.D The radiology attending physician has personally reviewed this study, and had reviewed and/or edited this written report and agrees with it. Electronically signed by: Eva Coe M.D. us Camryn Kay SWIMMING COACH OR INSTRUCTOR IMG MAMMO PROCEDURES Final Result * COLONOSCOPY (01/07/2021 7:45 AM MEDICAL TRANSCRIPTION RADIOLOGY) Anatomical Region Laterality Modality Other Narrative Procedure Note Avinash Alarcon MD - 01/07/2021 7:45 AM CST ENDOSCOPY LAB Patient Name: Carroll Mcfarland Procedure Date: 01/07/2021 7:45 AM Date of : 1965 Admit Type: Outpatient Age: 55 Gender: Male Attending MD: Avinash Alarcon M.D. Room: [facility] ENDOSCOPY ROOM 02 Note Status: Finalized Procedure: Colonoscopy Indications: High risk colon cancer surveillance: Personalhistory of rectal cancer, Last colonoscopy 3 years ago Providers: Avinash Alarcon M.D. Referring MD: Froilan Doty M.D. Medicines: Monitored Anesthesia Care Complications: No immediate complications. Estimated Blood Loss: Estimated blood loss: none. Procedure: Pre-Anesthesia Assessment: - Immediately prior to administration ofmedications, the patient was re-assessed for adequacy to receive sedatives. The benefits, risks and alternatives of theprocedure and sedation were discussed and informed consentwas obtained. All questions were answered. Please referto the signed informed consent document in the medical record. The scope was passed under direct vision.The [id number] was introduced through the anusand advanced to the cecum, identified by appendiceal orifice and ileocecal valve. The colonoscopy was performed without difficulty. The patient tolerated the procedure well. The quality of the bowel preparation was evaluated using the BBPS (BostonBowel Preparation Scale) with scores of: Right Colon = 3, Transverse Colon = 3 and Left Colon = 3 (entiremucosa seen well with no residual staining, smallfragments of stool or opaque liquid). The total BBPS score equals 9. The bowel preparation used was SUPREP via split dose instruction. Findings: The perianal and digital rectal examinations were normal. There was evidence of a prior side-to-end (Antony) colo-rectal anastomosis in the rectum. This was patent and was characterized by healthy appearing mucosa. The anastomosis was traversed. The exam was otherwise without abnormality. Impression: - Patent side-to-end colo-rectal anastomosis, characterized by healthy appearing mucosa. - The examination was otherwise normal. - No specimens collected. Recommendation: - Repeat colonoscopy in 3 years for surveillance. Avinash Alarcon MD Avinash Alarcon M.D. 01/07/2021 8:20:18 AM Number of Addenda: 0 Note Initiated On: 01/07/2021 7:45 AM us Avinash Alarcon MD ENDOSCOPY PROCEDURES Fi nal Result from Last 3 Months or Most Recently Relevant to Health Maintenance Insurance ANTHEM ACCESS ANTHEM ACCESS BLUE ACCESS OOS ANTHEM ACCESS Advance Directives For more information, please contact: [phone] * Full Code (Latest Code Status on File) Date Activated Date Inactivated Comments 01/07/2021 7:22 AM 01/07/2021 1:03 PM Care Teams Cooling Tower Technician Relationship Specialty Start Date End Date Marcela Gomez MD PCP - General 02/28/17
--- OUTSIDE RECORDS SUMMARY | 2025-05-14 06:09 | XMS_ITS | Clinical Summary ---
Author Organization [facility] Address [address] [address] Care Team Providers Care Timber Poisoner Name Role Phone Marcela Gomez MD Primary Care Provider [phone] Allergies Active Allergy Reactions Criticality Noted Date [...] (10/06/2020): Added automatically from request for surgery [id number] Rectal adenocarcinoma 08/28/2018 History of rectal cancer 05/17/2018 Kidney stones 01/15/2015 Encounters Date Type Department Care Team Description 04/11/2025 9:21 AM CDT - 04/11/2025 11:59 PM CDT Hospital Encounter [facility] - Breast Imaging [address] [place] [address] 8 [place] [address] Gynecomastia Discharge Disposition: Discharge to home or self care 04/11/2025 9:15 AM CDT Office Visit [facility] Surgery [address] [place] [address] 8 [place] [address] Camryn Kay NP Breast pain in male (Primary Dx); Hypertrophy of male breast; Gynecomastia, male 04/02/2025 Orders Only [facility] Surgery [address] [place] [address] 8 [place] [address] Camryn Kay NP Gynecomastia (Primary Dx) 03/19/2025 Telephone [facility] Surgery [address] [place] [address] 8 [place] [address] Camryn Kay NP Cancel 03/17/2025 4:37 PM CDT - 03/17/2025 11:59 PM CDT Hospital Encounter [facility] [address] [place] [address] Discharge Disposition: Discharge to home or self care 03/11/2025 Orders Only [facility] Surgery [address] [place] [address] 8 [place] [address] Camryn Kay NP 03/06/2025 Orders Only [facility] Surgery [address] [place] [address] Floor 5 [place] [address] Yesenia Escobar RN Breast pain (Primary Dx); Breast pain in male from Last 3 Months Surgical History Surgery Date Site/Laterality Comments LOW ANTERIOR BOWEL RESECTION 11/06/2014 - 11/05/2015 SLEEVE GASTROPLASTY 11/06/2017 - 11/05/2018 INCISIONAL HERNIA REPAIR 11/06/2014 - 11/05/2015 w/mesh CYSTOSCOPY INSERTION / REMOV AL STENT / STONE Medical History Medical History Date Comments HTN (hypertension) Rectal cancer (HCC) 2013 s/p radiatio n COVID-19 virus detected 08/2020 History of nephrolithiasis Family History Medical History Relation Name Comments Kidney cancer Father Family history of malignant neoplasm of kidney - (Added by TW Conv)/Family history of kidney cancer - (Added by TW Conv) Hypertension Mother Family history of hypertension - (Added by TW Conv) Skin cancer Mother Family history of skin cancer - (Added by TW Conv) Relation Name Status Comments Father Mother Social History Tobacco Use Types Packs/Day Years Used Date Smoking Tobacco: Former Cigarettes 2 11 1 989 - 1999 Passive Smoke Exposure: Past Smokeless Tobacco: Never [...] on file Legal Sex Male 8:45 PM [employer]EWABLE [employer] Gender Identity Not on file Sexual Orientation Not on file Obstetrics History Last Filed Vital Signs Vital Sign Reading Time Taken Comments Blood Pressure 198/115 11/19/2024 2:13 PM [employer] BR[employer]ER Pulse 104 11/19/2024 2:13 PM [employer]EW[employer] EN[employer]GY BROKER Temperature 36 C (96.8 F) 01/07/2021 8:23 AM RENEWABLE ENERGY BROKER Respiratory Rate 22 01/07/2021 8:45 AM RENEWABLE ENERGY BROKER Oxygen Saturation 90% 11/19/2024 2:13 PM [employer]ENEWABLE ENERGY BROKER Inhaled Oxygen Concentration - - Weight 155.4 kg (342 lb 9.6 oz) 025 9:06 AM CDT Height 172 cm (5' 7.72) 04/11/2025 9:06 AM CDT Body Mass Index 52.53 04/11/2025 9:06 AM CDT Plan of Treatment Health Maintenance Due Date Last Done Comments Depression Screening 1965 Hepatitis C Screening 1965 Prostate Cancer Screening-PSA 1965 DTaP/Tdap/Td Vaccine (1 - Tdap) 1976 Hepatitis B Screening 1983 Regular Well Visit/Exam 18-64 1983 Zoster Vaccine (1 of 2) 2015 Influenza Vaccine (#1) 2025 8, 08/18/2016 Colon Cancer Screening-Colonoscopy 01/07/2031 01/07/2021, 01/25/2018, 01/22/2015 Pneumococcal vaccine <65 Aged Out 06/06/2018 No longer eligible based on patient's age to complete this topic Colon Cancer Screening-CT Colonography Discontinued 01/07/2021, 01/25/2018, 01/22/2015 Colon Cancer Screening-DNA Stool Discontinued 01/07/2021, 01/25/2018, 01/22/2015 Colon Cancer Screening-FIT Discontinued 01/07, 01/25/2018, 01/22/2015 Colon Cancer Screening-Sigmoidoscopy Discontinued 01/07/2021, 01/25/2018, 01/22/2015 Procedures Procedure Name Priority Date/Time Associated Diagnosis Comments US BREAST BILATERAL LIMITED Schedule Routine, Read Routine (OP Routine) 04/11/2025 10:45 AM CDT Gynecomastia BREAST IMAGING MG DIAGNOSTIC OUTSIDE CONSULT Routine 03/17/2025 4:38 PM CDT COLONOSCOPY 01/07/2021 7:45 AM RENEWABLE ENERGY BROKER from Last 3 Months or Most Recently [...] of the management plan. Electronically signed by: MD Esau Osorio 04/11/2025 4:06 PM CDT EXAMINATION: BILATERAL BREAST ULTRASOUND HISTORY: 60-year-old male with RIGHT greater than LEFT subareolar tenderness and swelling. Patient reports switching SSRI medication last October, currently on Trintellix. Patient also reports new palpable area of concern on the RIGHT breast. COMPARISON: Outside mammogram 09/24/2024 TECHNIQUE: Directed ultrasound evaluation of BOTH breasts was performed by a trained apigee developer and by Dr. Witt. ULTRASOUND FINDINGS: Targeted ultrasound within the RIGHT [...] images may or may not represent the agdaagux source data set and thus may contain [...] OF OUTSIDE IMAGING FACILITY PERFORMING OUTSIDE IMAGING: [facility] in [place], [place] EXAM(S) REVIEWED: 1. BILATERAL DIAGNOSTIC MAMMOGRAM [...] OF OUTSIDE IMAGING FACILITY PERFORMING OUTSIDE IMAGING: [facility] in [place], [place] EXAM(S) REVIEWED: 1. BILATERAL DIAGNOSTIC MAMMOGRAM [...] images may or may not represent the agdaagux source data set and thus may contain changes which may lower the sensitivity of the second opinion interpretation. Dictated by: Henry Walker MD, Ph.D The radiology attending physician has personally reviewed this study, and had reviewed and/or edited this written report and agrees with it. Electronically signed by: Eva Coe M.D. Camryn Kay NP IMG MAMMO PROCEDURES Final Result * COLONOSCOPY (01/07/2021 7:45 AM RENEWABLE ENERGY BROKER) Anatomical Region Laterality Modality Other Narrative Procedure Note Avinash Alarcon MD - 01/07/2021 7:45 AM CST ENDOSCOPY LAB Patient Name: Carroll Mcfarland Procedure Date: 01/07/2021 7:45 AM Date of : 1965 Admit Type: Outpatient Age: 55 Gender: Male Attending MD: Avinash Alarcon M.D. Room: [facility] ENDOSCOPY ROOM 02 Note Status: Finalized [...] The scope was passed under direct vision.The [id number] was introduced through the anusand advanced to [...] 0 Note Initiated On: 01/07/2021 7:45 AM Avinash Alarcon MD ENDOSCOPY PROCEDURES Fi nal Result from Last 3 Months or Most Recently Relevant to Health Maintenance Insurance [facility] ACCESS ANTHEM ACCESS BLUE ACCESS OOS ANTHEM ACCESS Advance Directives For more information, please contact: [phone] * Full Code (Latest Code Status on File) Date Activated Date Inactivated Comments 01/07/2021 7:22 AM 01/07/2021 1:03 PM Care Teams Timber Poisoner Relationship Specialty Start Date End Date Marcela Gomez MD PCP - General 02/28/17
--- OUTSIDE RECORDS SUMMARY | 2025-05-14 06:09 | XMS_ITS ---
Author Organization [facility] Address [address] [address] Care Team Providers Care Sandblaster Stone Name Role Phone Marcela Gomez MD Primary Care Provider [phone] Active Problems Problem Noted Date Diagnosed Date Binge eating disorder 11/19/2024 Major depression, single episode, in complete re mission 11/19/2024 Rectal cancer 10/06/2020 Overview (10/06/2020): Added automatically from request for surgery [id number] Rectal adenocarcinoma 08/28/2018 History of rectal cancer 05/17/2018 Kidney stones 01/15/2015 Current Treatment and Therapy Plans No current plan information found. Past Treatment and Therapy Plans No past plan information found. Lifetime Dose Tracking * Chemical Lifetime Dose Automatic Entry Manual Entr y DLP 2,476 mGycm 2,476 mGycm 0 mGycm
--- OUTSIDE RECORDS SUMMARY | 2025-05-14 06:09 | XMS_ITS | Patient Health Record ---
Author Organization [facility] Address [address] [place] [address] Care Team Providers Care Saw Superintendent Name Role Phone Marcela Gomez MD Primary Care Provider Yuan Fulton Unavailable [phone] Allergies No Known Allergies Reason For Referral No Information Medications Medication SIG (Take, Route, Frequency, Duration) Notes Start Date End Date Status Lisinopril 40 MG Oral 01/10/2024 Ac tive Trintellix 10 MG 1 tablet Orally Once a day; Duration: 90 days Active Cyanocobalamin 1000 MCG/ML Injection 01/10/2024 Active SILDENAFIL (PULMONARY HYPERTENSION) 20 MG TABLET *Reorder from [employer] Software for eRx and Interaction Alerts* 01/10/2024 Active Metoprolol Tartrate 50 MG 1 tablet with food Orally Twice a day; Duration: 30 days 01/10/2024 Active LUER-JOSEPHINE SYRINGE-NEEDLE 3 mL 23 x 1 MISCELLANEOUS *Reorder from [employer] Software for eRx and Interaction Alerts* 01/10/2024 Active amLODIPine Besylate 2.5 MG Oral; Duration: 30 Days Active Wegovy 2.4 MG/0.75ML Subcutaneous; Duration: 28 Days Active Allopurinol 100 MG Oral prn 01/10/2024 Active Trintellix 10 MG 1 tablet Orally Once a day; Duration: 90 days Active Colchicine 0.6 MG Oral 01/10/2024 A ctive Ergocalciferol 1.25 MG (08287 UT) Oral 01/10/2024 Active Social History Tobacco Use: Social History Observation Description Date Details (start date - stop date) Former Smoker NA - NA Sex Assigned At : Social History Observation Description Sex Assigned At Male Tobacco Control (Standard) Question Answer Notes Tobacco use: Former smoker How long has it been since you last smoked? Grea ter than 10 years AUDIT-C (Standard) Question Answer Notes Did you have a drink contain ing alcohol in the past year? Yes Points 0 Interpretation Positive How often did you have six o r more drinks on one occasion in the past year? Never (0 point) How many drinks did you have on a typical day when you were drinking in the past year? 1 or 2 drinks (0 point) How often did you have a dri nk containing alcohol in the past year? Monthly or less (1 point) Problems Problem Type SNOMED Code ICD Code Onset Dates Problem Status W/U Status Risk Notes Problem Major depression, single episode, in complete remission (42320988) Major depressive disorder, single episode, in full remission (F32.5) Active confirmed Problem Generalized anxiety disorder (15364373) Generalized anxiety disorder (F41.1) Active confirmed Problem Binge eating disorder (047577244) Binge eating disorder (F50.81) Active confirmed Vital Signs Heart Rate 80 /min 11/22/2024 Height-cm 177.80 cm 11/22/2024 Blood pressure diastolic 87 mm Hg 11/22/2024 Weight-kg 160.12 kg 11/22/2024 Height 70.00 in 11/22/2024 Blood pressure systolic 159 mm Hg 11/22/2024 Weight 353 lbs 11/22/2024 BMI 50.64 kg/m2 11/22/2024 Encounters Encounter Location Date Provider Diagnosis [facility] [address] [facility] [address] [address] 10/25/2024 Yuan Kay Major depressive disorder, single episode, in full remission F32.5 ; Generalized anxiety disorder F41.1 ; Binge eating disorder F50.81 and Medication side effect T88.7XXA [facility] [address] [facility] [address] [place] [address] 11/22/2024 Yuanadan Ruizoza Major depressive disorder, single episode, in full remission F32.5 ; Generalized anxiety disorder F41.1 ; Medication side effect T88.7XXA and Binge eating disorder, mild F50.810 [facility] [address] [facility] [address] [place] [address] 02/14/2025 Yuan Kay Binge eating disorder, mild F50.810 ; Major depressive disorder, single episode, in full remission F32.5 ; Generalized anxiety disorder F41.1 and Encounter for screening for depression Z13.31 Assessments Encounter Date Diagnosis (ICD Code) Assessment Notes Treatment Notes Treatment Clinical Notes Section Notes 02/14/2025 Binge eating disorder, mild (ICD-10 - F50.810) has appt with behavioral food psychologist 11/22/2024 Major depressive disorder, single episode, in full remission (ICD-10 - F32.5) 11/22/2024 Generalized anxiety disorder (ICD-10 - F41.1) stable 10/25/2024 Major depressive disorder, single episode, in full remission (ICD-10 - F32.5) venlafaxine 75mg once daily and 37.5mg once daily x 7 days then 37.5mg twice daily x 7 days then 37.5mg once daily x 7 days then stop at the same time start Trintellix 5mg daily x 7 days then 10mg daily 1. Depression: - Patient reports feeling depressed, especially during this time of year. - Currently on venlafaxine 75 mg twice daily, but experiencing sexual dysfunction as a side effect. Plan: - Taper off venlafaxine to avoid discontinuation symptoms: * 75 mg once daily and 37.5 mg once daily for a week * 37.5 mg twice daily for a week * 37.5 mg once daily for a week * Then stop - Initiate Trintellix at 5 mg daily for a week, then increase to 10 mg daily. - If insurance does not approve Trintellix, consider alternative options such as Viibryd, Lexapro, or Zoloft. - Schedule a follow-up appointment in one month to assess the patient's response to the new medication and address any concerns. 2. Anxiety: - No specific concerns reported during this visit. Plan: - Continue to monitor and address during follow-up appointments as needed. 10/25/2024 Generalized anxiety disorder (ICD-10 - F41.1) Worse with situation 1. Depression: - Patient reports feeling depressed, especially during this time of year. - Currently on venlafaxine 75 mg twice daily, but experiencing sexual dysfunction as a side effect. Plan: - Taper off venlafaxine to avoid discontinuation symptoms: * 75 mg once daily and 37.5 mg once daily for a week * 37.5 mg twice daily for a week * 37.5 mg once daily for a week * Then stop - Initiate Trintellix at 5 mg daily for a week, then increase to 10 mg daily. - If insurance does not approve Trintellix, consider alternative options such as Viibryd, Lexapro, or Zoloft. - Schedule a follow-up appointment in one month to assess the patient's response to the new medication and address any concerns. 2. Anxiety: - No specific concerns reported during this visit. Plan: - Continue to monitor and address during follow-up appointments as needed. 11/22/2024 Medication side effect (ICD-10 - T88.7XXA) improved with Trintellix 10/25/2024 Binge eating disorder (ICD-10 - F50.81) improving 1. Depression: - Patient reports feeling depressed, especially during this time of year. - Currently on venlafaxine 75 mg twice daily, but experiencing sexual dysfunction as a side effect. Plan: - Taper off venlafaxine to avoid discontinuation symptoms: * 75 mg once daily and 37.5 mg once daily for a week * 37.5 mg twice daily for a week * 37.5 mg once daily for a week * Then stop - Initiate Trintellix at 5 mg daily for a week, then increase to 10 mg daily. - If insurance does not approve Trintellix, consider alternative options such as Viibryd, Lexapro, or Zoloft. - Schedule a follow-up appointment in one month to assess the patient's response to the new medication and address any concerns. 2. Anxiety: - No specific concerns reported during this visit. Plan: - Continue to monitor and address during follow-up appointments as needed. 02/14/2025 Major depressive disorder, single episode, in full remission (ICD-10 - F32.5) 02/14/2025 Generalized anxiety disorder (ICD-10 - F41.1) stable 02/14/2025 Encounter for screening for depression (ICD-10 - Z13.31) 10/25/2024 Medication side effect (ICD-10 - T88.7XXA) taper off venlafaxine, start Trintellix 1. Depression: - Patient reports feeling depressed, especially during this time of year. - Currently on venlafaxine 75 mg twice daily, but experiencing sexual dysfunction as a side effect. Plan: - Taper off venlafaxine to avoid discontinuation symptoms: * 75 mg once daily and 37.5 mg once daily for a week * 37.5 mg twice daily for a week * 37.5 mg once daily for a week * Then stop - Initiate Trintellix at 5 mg daily for a week, then increase to 10 mg daily. - If insurance does not approve Trintellix, consider alternative options such as Viibryd, Lexapro, or Zoloft. - Schedule a follow-up appointment in one month to assess the patient's response to the new medication and address any concerns. 2. Anxiety: - No specific concerns reported during this visit. Plan: - Continue to monitor and address during follow-up appointments as needed. 11/22/2024 Binge eating disorder, mild (ICD-10 - F50.810) has appt with behavioral food psychologist 11/22/2024 Other 1. Major Depressive Disorder: - Patient reports improvement in symptoms after switching from venlafaxine to Trintellix (vortioxetine) 10 mg daily. - No current depressive symptoms reported. Plan: - Continue Trintellix 10 mg daily. - Monitor for any changes in symptoms and consider increasing the dose if needed. - Schedule a follow-up appointment in 3 months or sooner if symptoms worsen. 2. Anxiety: - Patient reports a persistent level of anxiety, but not worse than when on venlafaxine. Plan: - Continue to monitor anxiety levels during follow-up appointments. - Consider additional interventions if anxiety worsens or becomes unmanageable. 3. Hypertension: - Patient reports recent adjustment in blood pressure medications by their primary care provider. Plan: - Continue current medications as prescribed: lisinopril, metoprolol, and amlodipine. - Encourage patient to follow up with their primary care provider for ongoing management of hypertension. 4. Sleep apnea and gastric sleeve revision: - Patient is exploring options for gastric sleeve revision but is currently unable to schedule the procedure. Plan: - Encourage patient to continue seeking appropriate care and follow up with a recruiting internship and behavioral food psychologist as planned. 5. Binge eating disorder: - Patient reports a decrease in binge eating behaviors since restarting Wegovy (semaglutide) injections. Plan: - Continue Wegovy as prescribed. - Monitor for changes in eating behaviors and weight management during follow-up appointments. 6. Medication refills: Plan: - Send Trintellix 10 mg prescription refill to the patient's preferred pharmacy ([facility] 02/14/2025 Other improved with Trintellix Carroll Mcfarland is a patient with a history of depression and binge-eating disorder, currently well-managed on Trintellix with occasional mild depressive symptoms and reduced binge-eating episodes. Major Depressive Disorder Assessment: Patient reports good overall mood with Trintellix, which he describes as great med. He experiences only rare occasions of depression, which he can quickly recognize and manage. This represents a significant improvement from his previous medication regimen, where he would start in a hole and it would be hard to come out of it. The patient notes that depressive episodes are now definitely much more manageable and recognizable. Anxiety symptoms are reported as minimal and manageable. Plan: - Continue Trintellix at current dose - Patient informed of high cost ($498 for 30 days) - Discussed use of copay card to reduce cost by $100 - Offered samples to help offset cost - Consider switching to 90-day supply through [facility] to potentially reduce costs - Follow up in 4 months Binge-Eating Disorder Assessment: Patient reports reduced binge-eating episodes with current medication regimen. He is taking an unnamed medication (likely Vyvanse based on context) at $25 per month, which helps him feel full. The psychiatric effects of the medication have diminished over time; initially, the patient stopped thinking about food constantly, but now occasionally still thinks about food and experiences cravings. Despite this, the frequency of thoughts about food has decreased compared to before starting the medication. Plan: - Continue current medication for binge-eating disorder at $25/month - Patient to continue follow-up with recruiting internship from behavioral food psychology office - Encourage patient to follow up on pending appointment with behavioral food psychologist (currently 6-month wait) Medication Side Effects Assessment: Patient denies experiencing any side effects from Trintellix. Notably, sexual side effects that were present with previous medication have resolved since starting Trintellix. Plan: - Continue monitoring for potential side effects at follow-up appointments the note is transcribed using speech recognition software. It is a reflection of a visit with the patient. It might have some inaccuracy, including medication names and transcribing errors, though efforts have been made to correct them. Plan Of Treatment Next Appt Details Provider Name:Yuan valenzuela, 06/13/2025 09:00:00 AM, [address], [address], [place], [address], Insurance Providers Payer Name Payer Address Payer Phone Subscriber Number Group Number Insured Name Patient Relationship to Insured Coverage Start Date Coverage End Date [employer] [employer] [address] [place] [address] [id number] CARROLL LITTLE Self - patient is the insured Medical (General) History Medical History History ICD Code Problems: Binge eating disorder Generalized anxiety disorder Major depression in remission , Imported from Highlights: Th e patient has had several encounters with healthcare providers from 2023 to 2024. On April 23, 2024, and June 24, 2024, the patient visited Andrés Blackmon for outpatient surgical procedures. The nature of these procedures is not specified. On April 03, 2024, the patient had a telephone consultation with Dr. Alta Chan at [facility]. In 2024, the patient had office visits and telemedicine consultations addressing issues of morbid obesity (HCC), a history of gastric sleeve surgery, and a history of rectal cancer. On November 19, 2024, the patient saw Nat Verduzco NP, at [facility], where binge eating disorder was also noted. On December 02, 2024, and January 22, 2025, the patient had telemedicine consultations with Madhuri Zelaya RD, at the same institution. Surgical History Surgery Date(Month/Year) Colectomy (80131) 06/10/2014 Any surgical history 06/10/2014
[2025-05-14 06:11] VITALS: BP 201/92; PULSE 75; RESP 16; TEMP 36.6; O2SAT 99
--- OUTSIDE RECORDS SUMMARY | 2025-05-14 06:36 | XMS_ITS | Referral Summary ---
Author Organization [facility] Address [address] [place] [address] Care Team Providers Care Access Database Developer Name Role Phone Marcela Gomez MD Primary Care Provider [phone] Encounters Date Type Department Care Team Description 04/11/2025 9:21 AM CDT - 04/11/2025 11:59 PM CDT Hospital Encounter [facility] - Breast Imaging [address] [place] [address] Gynecomastia Discharge Disposition: Discharge to home or self care 04/11/2025 9:15 AM CDT Office Visit [facility] Surgery [address] [place] [phone] Camryn Kay NP Breast pain in male (Primary Dx); Hypertrophy of male breast; Gynecomastia, male 04/02/2025 Orders Only [facility] Surgery [address] [place] [address] 8 [place] [phone] Camryn Kay NP Gynecomastia (Primary Dx) 03/19/2025 Telephone [facility] Surgery [address] [place] [address] 8 [place] [address] Camryn Kay NP Cancel 03/17/2025 4:37 PM CDT - 03/17/2025 11:59 PM CDT Hospital Encounter [facility] [address] [place] [address] Discharge Disposition: Discharge to home or self care 03/11/2025 Orders Only [facility] Surgery [address] [facility] Floor 8 [place] [phone] Camryn Kay NP 03/06/2025 Orders Only [facility] Surgery [address] [facility] Floor 5 [place] [phone] Yesenia Escobar RN Breast pain (Primary Dx); [...] (10/06/2020): Added automatically from request for surgery [id number] Rectal adenocarcinoma 08/28/2018 History of rectal cancer [...] on file Legal Sex Male 8:45 PM INVESTMENT COUNSELOR Gender Identity Not on file Sexual Orientation Not on file Last Filed Vital Signs Vital Sign Reading Time Taken Comments Blood Pressure 198/115 11/19/2024 2:13 PM INVESTMENT COUNSELOR Pulse 104 11/19/2024 2:13 PM INVESTMENT COUNSELOR Temperature 36 C (96.8 F) 01/07/2021 8:23 AM INVESTMENT COUNSELOR Respiratory Rate 22 01/07/2021 8:45 AM INVESTMENT COUNSELOR Oxygen Saturation 90% 11/19/2024 2:13 PM INVESTMENT COUNSELOR Inhaled Oxygen Concentration - - Weight 155.4 [...] 4:38 PM CDT COLONOSCOPY 01/07/2021 7:45 AM INVESTMENT COUNSELOR from Last 3 Months or Most Recently [...] BOTH breasts was performed by a trained goggles assembler and by Dr. Witt. ULTRASOUND FINDINGS: Targeted [...] images may or may not represent the quinault source data set and thus may contain [...] OF OUTSIDE IMAGING FACILITY PERFORMING OUTSIDE IMAGING: [facility] in [place], [place] EXAM(S) REVIEWED: 1. BILATERAL DIAGNOSTIC MAMMOGRAM [...] OF OUTSIDE IMAGING FACILITY PERFORMING OUTSIDE IMAGING: [facility] in [place], [place] EXAM(S) REVIEWED: 1. BILATERAL DIAGNOSTIC MAMMOGRAM [...] images may or may not represent the quinault source data set and thus may contain changes which may lower the sensitivity of the second opinion interpretation. Dictated by: Henry Walker MD, Ph.D The radiology attending physician has personally reviewed this study, and had reviewed and/or edited this written report and agrees with it. Electronically signed by: Eva Coe M.D. us Camryn Kay PET AMBASSADOR IMG MAMMO PROCEDURES Final Result * COLONOSCOPY (01/07/2021 7:45 AM INVESTMENT COUNSELOR) Anatomical Region Laterality Modality Other Narrative Procedure Note Avinash Alarcon MD - 01/07/2021 7:45 AM CST ENDOSCOPY LAB Patient Name: Carroll Mcfarland Procedure Date: 01/07/2021 7:45 AM Date of : 1965 Admit Type: Outpatient Age: 55 Gender: Male Attending MD: Avinash Alacron M.D. Room: [facility] ENDOSCOPY ROOM 02 Note Status: Finalized [...] The scope was passed under direct vision.The [id number] was introduced through the anusand advanced to [...] Advance Directives For more information, please contact: [phone] * Full Code (Latest Code Status on File) Date Activated Date Inactivated Comments 01/07/2021 7:22 AM 01/07/2021 1:03 PM Care Teams Access Database Developer Relationship Specialty Start Date End Date Marcela Gomez MD PCP - General 02/28/17
--- OUTSIDE RECORDS SUMMARY | 2025-05-14 06:36 | XMS_ITS | Clinical Summary ---
Author Organization [facility] Address [address] [phone] Care Team Providers Care Regulatory Agency Director Name Role Phone Marcela Gomez MD Primary Care Provider [phone] Allergies Active Allergy Reactions Criticality Noted Date [...] (10/06/2020): Added automatically from request for surgery [id number] Rectal adenocarcinoma 08/28/2018 History of rectal cancer 05/17/2018 Kidney stones 01/15/2015 Encounters Date Type Department Care Team Description 04/11/2025 9:21 AM CDT - 04/11/2025 11:59 PM CDT Hospital Encounter [facility] - Breast Imaging [address] [place] [address] 8 [place] [address] Gynecomastia Discharge Disposition: Discharge to home or self care 04/11/2025 9:15 AM CDT Office Visit [facility] Surgery [address] [place] [address] 8 [place] [phone] Camryn Kay NP Breast pain in male (Primary Dx); Hypertrophy of male breast; Gynecomastia, male 04/02/2025 Orders Only [facility] Surgery [address] [place] [address] 8 [place] [phone] Camryn Kay NP Gynecomastia (Primary Dx) 03/19/2025 Telephone [facility] Surgery [address] [place] [address] 8 [place] [phone] Camryn Kay NP Cancel 03/17/2025 4:37 PM CDT - 03/17/2025 11:59 PM CDT Hospital Encounter [facility] [address] [place] [address] Discharge Disposition: Discharge to home or self care 03/11/2025 Orders Only [facility] Surgery [address] [place] [address] 8 [place] [phone] Camryn Kay NP 03/06/2025 Orders Only [facility] Surgery [address] [place] [address] Floor 5 [place] [phone] Yesenia Escobar RN Breast pain (Primary Dx); [...] on file Legal Sex Male 8:45 PM EQUIPMENT INSTALLATION PROFESSIONAL Gender Identity Not on file Sexual Orientation Not on file Obstetrics History Last Filed Vital Signs Vital Sign Reading Time Taken Comments Blood Pressure 198/115 11/19/2024 2:13 PM EQUIPMENT INSTALLATION PROFESSIONAL Pulse 104 11/19/2024 2:13 PM EQUIPMENT INSTALLATION PROFESSIONAL Temperature 36 C (96.8 F) 01/07/2021 8:23 AM EQUIPMENT INSTALLATION PROFESSIONAL Respiratory Rate 22 01/07/2021 8:45 AM EQUIPMENT INSTALLATION PROFESSIONAL Oxygen Saturation 90% 11/19/2024 2:13 PM EQUIPMENT INSTALLATION PROFESSIONAL Inhaled Oxygen Concentration - - Weight 155.4 [...] 4:38 PM CDT COLONOSCOPY 01/07/2021 7:45 AM EQUIPMENT INSTALLATION PROFESSIONAL from Last 3 Months or Most Recently [...] BOTH breasts was performed by a trained regulatory affairs coordinator and by Dr. Witt. ULTRASOUND FINDINGS: Targeted [...] images may or may not represent the [place] source data set and thus may contain [...] OF OUTSIDE IMAGING FACILITY PERFORMING OUTSIDE IMAGING: [facility] in [place], [place] EXAM(S) REVIEWED: 1. BILATERAL DIAGNOSTIC MAMMOGRAM [...] OF OUTSIDE IMAGING FACILITY PERFORMING OUTSIDE IMAGING: [facility] in [place], [place] EXAM(S) REVIEWED: 1. BILATERAL DIAGNOSTIC MAMMOGRAM [...] images may or may not represent the [place] source data set and thus may contain [...] Final Result * COLONOSCOPY (01/07/2021 7:45 AM EQUIPMENT INSTALLATION PROFESSIONAL) Anatomical Region Laterality Modality Other Narrative Procedure Note Avinash Alarcon MD - 01/07/2021 7:45 AM CST ENDOSCOPY LAB Patient Name: Carroll Mcfarland Procedure Date: 01/07/2021 7:45 AM Date of : 1965 Admit Type: Outpatient Age: 55 Gender: Male Attending MD: Avinash Alarcon M.D. Room: [facility] ENDOSCOPY ROOM 02 Note Status: Finalized Procedure: [...] The scope was passed under direct vision.The [id number] was introduced through the anusand advanced to [...] Most Recently Relevant to Health Maintenance Insurance [facility] ACCESS ANTHEM ACCESS BLUE ACCESS OOS ANTHEM ACCESS Advance Directives For more information, please contact: [phone] * Full Code (Latest Code Status on File) Date Activated Date Inactivated Comments 01/07/2021 7:22 AM 01/07/2021 1:03 PM Care Teams Regulatory Agency Director Relationship Specialty Start Date End Date Marcela Gomez MD PCP - General 02/28/17
--- OUTSIDE RECORDS SUMMARY | 2025-05-14 06:36 | XMS_ITS ---
Author Organization [facility] Address [address] [address] Care Team Providers Care Health And Safety Trainer Name Role Phone Marcela Gomez MD Primary Care Provider [phone] Active Problems Problem Noted Date Diagnosed Date Binge eating disorder 11/19/2024 Major depression, single episode, in complete re mission 11/19/2024 Rectal cancer 10/06/2020 Overview (10/06/2020): Added automatically from request for surgery [id number] Rectal adenocarcinoma 08/28/2018 History of rectal cancer 05/17/2018 Kidney stones 01/15/2015 Current Treatment and Therapy Plans No current plan information found. Past Treatment and Therapy Plans No past plan information found. Lifetime Dose Tracking * Chemical Lifetime Dose Automatic Entry Manual Entr y DLP 2,476 mGycm 2,476 mGycm 0 mGycm
--- NOTE | 2025-05-14 06:43 | ED_ITS ---
HPI - Abdominal Pain General Chief Complaint: Abdominal Pain <Argentina Roy MD - Last Filed: 05/14/25 06:51> Stated Complaint: BILATERAL FLANK PAIN, HX KIDNEY STONES <Argentina Roy MD - Last Filed: 05/14/25 06:51> Time Seen by Provider: 05/14/25 06:23 <Argentina Roy MD - Last Filed: 05/14/25 06:51> History of Present Illness HPI narrative: Patient is a 60-year-old male who presents to the emergency department this evening complaining of bilateral flank/lower back pain. Patient states that he has a history of kidney stones and was here last year for a flare. States that he has not urinated since yesterday afternoon which is unusual for him. Denies any nausea vomiting or abdominal pain, recent illness, fevers or chills. There are no additional modifying, alleviating, or precipitating factors at this time. <Argentina Roy MD - Last Filed: 05/14/25 06:51> Related Data Home Medications: Home Medications ?Medication ?Instructions ?Recorded ?Confirmed ?Last Taken ?Type calcium-mag oxide-vitamin D3 250 1 cap PO BID 10/16/19 01/20/25 Unknown History mg-125 mg-100 unit capsule (Coral Calcium) cyanocobalamin (vitamin B-12) 1,000 mcg IM MONTHLY 10/16/19 01/20/25 Unknown History 1,000 mcg/mL injection kit (B-12 Compliance) multivitamin (Chewable-Cassie tablet) 1 tablet PO DAILY 10/16/19 01/20/25 Unknown History <Argentina Roy MD - Last Filed: 05/14/25 06:51> Allergies/Adverse Reactions: Allergies Allergy/AdvReac Type Severity Reaction Status Date / Time bee venom protein (honey Allergy Swelling Verified 01/20/25 16:17 bee) (bees) <Argentina Roy MD - Last Filed: 05/14/25 06:51> Review of Systems 2 Review of Systems: All systems are reviewed and are negative unless stated otherwise in the HPI. <Argentina Roy MD - Last Filed: 05/14/25 06:51> PMFSH Past Medical History Medical History: Medical History Obesity, morbid, BMI 40.0-49.9 Prediabetes Mixed hyperlipidemia Obstructive sleep apnea H/O: gout Anxiety Erectile dysfunction Essential (primary) hypertension Low ferritin Mild episode of recurrent major depressive disorder Vitamin B12 deficiency Vitamin D deficiency Cancer of sigmoid <Argentina Roy MD - Last Filed: 05/14/25 06:51> Surgical History Surgical History: Surgical History History of gastric restrictive surgery History of reversal of ileostomy (~2013) <Argentina Roy MD - Last Filed: 05/14/25 06:51> Family History Family History: Family History Father Hypertension Other Family history of arthritis Family history of heart disease in male family member before age 55 Family history of malignant neoplasm <Argentina Roy MD - Last Filed: 05/14/25 06:51> Social History Social History: Social History Smoking packs per day: 2 Smoking cigarettes per day: 40.0 Years smoked: 20 Smoking pack-years: 40.00 Smoking status: Former smoker Tobacco type: cigarettes Second hand tobacco smoke exposure: Yes Smoking end date: 11/06/98 Alcohol intake: current Alcohol use details: RARE Substance use: never Substance use type: does not use Lack of Transportation: No Lack of Food: Never True Current Housing: I Have Housing Concerned About Future Housing: No Difficulty Paying Gas/Electric Bills: No Difficulty Paying for Meds: No Currently Unemployed: No Education: Master's Degree or Higher Difficulty w/ Childcare or Family Care: No Living arrangements: with family Occupation/Education: occupation Gender identity (if verbalized by the patient): Male Spiritual care concerns: No Agree to blood products: Yes <Argentina Roy MD - Last Filed: 05/14/25 06:51> Exam 2 Narrative: General: Alert, awake, afebrile, in no acute distress, obese. HEENT: PERRL, no rhinorrhea, no post nasal drip, oropharynx clear. Neck: Trachea midline, no JVD, no lymphadenopathy. Cardiovascular: Regular rate and rhythm, no murmurs, rubs or gallops, no peripheral edema. Respiratory: Clear to auscultation bilaterally, no tachypnea, no wheezing, no rhonchi, no rubs, no respiratory distress. Abdomen: Soft, nontender, nondistended, no rebound, no guarding, no peritoneal signs. Musculoskeletal: No joint swelling or deformity, normal muscle tone. Skin: No rashes or petechia, no signs of infection. Psychiatric: Alert and oriented, normal behavior and judgment for situation. Neurological: Alert and oriented to person, place, and time. Follows all commands. No focal deficits, speech is clear and fluent. <Argentina Roy MD - Last Filed: 05/14/25 06:51> Course Course Emergency Course: Patient resting comfortably. Informed of imaging and lab results. Appropriate for discharge home. Will provide pain medication and Flomax as well as antiemetics. <Adolfo Carlson MD - Last Filed: 05/14/25 09:06> Vital Signs Vital signs: Vital Signs Temperature 97.9 F 05/14/25 06:11 Pulse Rate 75 05/14/25 06:11 Respiratory Rate 16 05/14/25 06:11 Blood Pressure 201/92 H 05/14/25 06:11 Pulse Oximetry 99 05/14/25 06:11 Oxygen Delivery Room Air 05/14/25 06:11 Temperature 97.9 F 05/14/25 06:11 Pulse Rate 79 05/14/25 08:32 Respiratory Rate 20 05/14/25 08:32 Blood Pressure 179/93 H 05/14/25 07:15 Pulse Oximetry 100 05/14/25 08:32 Oxygen Delivery Room Air 05/14/25 06:11 <Argentina Roy MD - Last Filed: 05/14/25 06:51> Vital Signs Temperature 97.9 F 05/14/25 06:11 Pulse Rate 75 05/14/25 06:11 Respiratory Rate 16 05/14/25 06:11 Blood Pressure 201/92 H 05/14/25 06:11 Pulse Oximetry 99 05/14/25 06:11 Oxygen Delivery Room Air 05/14/25 06:11 Temperature 97.9 F 05/14/25 06:11 Pulse Rate 79 05/14/25 08:32 Respiratory Rate 20 05/14/25 08:32 Blood Pressure 179/93 H 05/14/25 07:15 Pulse Oximetry 100 05/14/25 08:32 Oxygen Delivery Room Air 05/14/25 06:11 <Adolfo Carlson MD - Last Filed: 05/14/25 09:06> MDM - Abdominal Pain MDM Narrative Medical decision making narrative: The patient was evaluated by myself in the emergency department. History is obtained from patient who is an independent historian and physical exam was performed. External medical records were reviewed at this time. IV was established and pertinent tests were ordered. Patient was administered 1 L IV fluid bolus with normal saline, 4 mg of IV morphine for pain 4 mg IV Zofran for nausea. Laboratory results were obtained and are currently pending. Differential diagnosis considerations include he urinary tract infection, pyelonephritis, nephrolithiasis. Comorbidities impacting this visit include history of kidney stones. I have evaluated and discussed social determinants of health with the patient that could potentially impact subsequent diagnosis and treatment plans. Patient was signed out to AM ED physician pending remainder of the workup. < Argentina Roy MD - Last Filed: 05/14/25 06:51> Lab Data Result diagrams: 05/14/25 06:45 05/14/25 06:46 <Argentina Roy MD - Last Filed: 05/14/25 06:51> Labs: Lab Results 05/14/25 05/14/25 Range/Units 06:45 06:46 WBC 8.3 (4.5-10.0) K/mm3 RBC 4.94 (4.6-6.20) M/mm3 Hgb 13.1 L (14.0-18.0) g/dL Hct 40.9 L (42.0-52.0) % MCV 82.8 (80-100) fl MCH 26.5 (26-34) pg MCHC 32.0 (32-36) g/dl RDW 14.1 (11.5-14.5) % Plt Count 236 (150-375) k/mm3 MPV 8.8 (7.4-10.4) fl Immature Gran % (Auto) 0.4 (0-0.5) % Neut % (Auto) 80.6 H (45.5-73.1) % Lymph % (Auto) 12.2 L (18.3-44.2) % [place] % (Auto) 6.5 (2.6-8.5) % Eos % (Auto) 0.2 (0-4.4) % Baso % (Auto) 0.1 L (0.2-1.2) % Lymph # (Auto) 1.01 (0.9-3.2) K/mm3 [place] # (Auto) 0.5 (0.1-0.6) K/mm3 Eos # (Auto) 0.0 (0-0.3) K/mm3 Baso # (Auto) 0.0 (0.0-0.1) K/mm3 Abs Immat Gran (auto) 0.03 (0.00-0.031) K/mm3 Absolute Neuts (auto) 6.7 (1.3-6.7) K/mm3 Absolute Nucleated RBC 0.000 (0.0-0.012) K/mm3 Nucleated RBC % 0.0 (0.0-0.2) % Sodium 140 (137-145) mmol/L Potassium 3.5 (3.4-5.0) mmol/L Chloride 100 (98-107) mmol/L Carbon Dioxide 30 (22-30) mmol/L Anion Gap 10 (4-12) mmol/L BUN 12 (9-20) mg/dL Creatinine 1.07 (0.7-1.3) mg/dL Estim Creat Clear Calc 97 ml/min Estimated GFR > 60 (59 - ) Glucose 140 H (65-110) mg/dL Calcium 9.1 (8.4-10.2) mg/dL Magnesium 2.0 (1.6-2.3) mg/dL Total Bilirubin 1.0 (0.2-1.3) mg/dL AST 38 (17-59) U/L ALT 39 (6-50) U/L Alkaline Phosphatase 67 (38-126) U/L Total Protein 7.9 (6.3-8.2) g/dL Albumin 4.2 (3.5-5.1) g/dL Lipase 94 (23-300) U/L Urine Color Yellow (Yellow) Urine Appearance Clear (Clear) Urine pH 6.0 (5.0-9.0) Ur Specific Spencer 1.015 (1.001-1.035) Urine Protein Negative (Negative) mg/dL Urine Glucose (UA) Negative (Negative) mg/dL Urine Ketones Trace H (Negative) mg/dL Ur Blood (Man) 3+ H (Negative) Urine Nitrate Negative (Negative) Urine Bilirubin Negative (Negative) Urine Urobilinogen 1.0 (<2.0) mg/dL Leukocyte Esterase Rfl 2+ H (Negative) DANGELO/UL Urine RBC 51-100 H (0-2) /hpf Urine WBC 6-10 H (0-3) /hpf Ur Squamous Epith Cells None seen (Few) /hpf Urine Bacteria None seen /hpf Urine Casts 0-2 <Argentina Roy MD - Last Filed: 05/14/25 06:51> Lab Results 05/14/25 05/14/25 Range/Units 06:45 06:46 WBC 8.3 (4.5-10.0) K/mm3 RBC 4.94 (4.6-6.20) M/mm3 Hgb 13.1 L (14.0-18.0) g/dL Hct 40.9 L (42.0-52.0) % MCV 82.8 (80-100) fl MCH 26.5 (26-34) pg MCHC 32.0 (32-36) g/dl RDW 14.1 (11.5-14.5) % Plt Count 236 (150-375) k/mm3 MPV 8.8 (7.4-10.4) fl Immature Gran % (Auto) 0.4 (0-0.5) % Neut % (Auto) 80.6 H (45.5-73.1) % Lymph % (Auto) 12.2 L (18.3-44.2) % [place] % (Auto) 6.5 (2.6-8.5) % Eos % (Auto) 0.2 (0-4.4) % Baso % (Auto) 0.1 L (0.2-1.2) % Lymph # (Auto) 1.01 (0.9-3.2) K/mm3 [place] # (Auto) 0.5 (0.1-0.6) K/mm3 Eos # (Auto) 0.0 (0-0.3) K/mm3 Baso # (Auto) 0.0 (0.0-0.1) K/mm3 Abs Immat Gran (auto) 0.03 (0.00-0.031) K/mm3 Absolute Neuts (auto) 6.7 (1.3-6.7) K/mm3 Absolute Nucleated RBC 0.000 (0.0-0.012) K/mm3 Nucleated RBC % 0.0 (0.0-0.2) % Sodium 140 (137-145) mmol/L Potassium 3.5 (3.4-5.0) mmol/L Chloride 100 (98-107) mmol/L Carbon Dioxide 30 (22-30) mmol/L Anion Gap 10 (4-12) mmol/L BUN 12 (9-20) mg/dL Creatinine 1.07 (0.7-1.3) mg/dL Estim Creat Clear Calc 97 ml/min Estimated GFR > 60 (59 - ) Glucose 140 H (65-110) mg/dL Calcium 9.1 (8.4-10.2) mg/dL Magnesium 2.0 (1.6-2.3) mg/dL Total Bilirubin 1.0 (0.2-1.3) mg/dL AST 38 (17-59) U/L ALT 39 (6-50) U/L Alkaline Phosphatase 67 (38-126) U/L Total Protein 7.9 (6.3-8.2) g/dL Albumin 4.2 (3.5-5.1) g/dL Lipase 94 (23-300) U/L Urine Color Yellow (Yellow) Urine Appearance Clear (Clear) Urine pH 6.0 (5.0-9.0) Ur Specific Spencer 1.015 (1.001-1.035) Urine Protein Negative (Negative) mg/dL Urine Glucose (UA) Negative (Negative) mg/dL Urine Ketones Trace H (Negative) mg/dL Ur Blood (Man) 3+ H (Negative) Urine Nitrate Negative (Negative) Urine Bilirubin Negative (Negative) Urine Urobilinogen 1.0 (<2.0) mg/dL Leukocyte Esterase Rfl 2+ H (Negative) DANGELO/UL Urine RBC 51-100 H (0-2) /hpf Urine WBC 6-10 H (0-3) /hpf Ur Squamous Epith Cells None seen (Few) /hpf Urine Bacteria None seen /hpf Urine Casts 0-2 <Adolfo Carlson MD - Last Filed: 05/14/25 09:06> Imaging Data Radiologist's impression: ITS Impressions Abdomen/Pelvis CT 05/14/25 07:41 Impression: 2 mm distal left ureteral stone with mild left hydroureteronephrosis. Diffuse hepatic steatosis. Large right-sided spigelian hernia containing mesenteric fat and several small bowel loops. No bowel obstruction. <Argentina Roy MD - Last Filed: 05/14/25 06:51> ITS Impressions Abdomen/Pelvis CT 05/14/25 07:41 Impression: 2 mm distal left ureteral stone with mild left hydroureteronephrosis. Diffuse hepatic steatosis. Large right-sided spigelian hernia containing mesenteric fat and several small bowel loops. No bowel obstruction. <Adolfo Carlson MD - Last Filed: 05/14/25 09:06> Discharge Plan Discharge Clinical Impression: Calculus, ureteral <Argentina Roy MD - Last Filed: 05/14/25 06:51> Patient Disposition: Home <Argentina Roy MD - Last Filed: 05/14/25 06:51> Condition: Stable <Argentina oRy MD - Last Filed: 05/14/25 06:51> Instructions: Kidney Stones (ED), How to Strain Your Urine (ED) <Argentina Roy MD - Last Filed: 05/14/25 06:51> Additional Instructions: Return to the emergency department if you develop severe abdominal pain, severe nausea and vomiting to the point where you are unable to keep down fluids, if you develop chest pain or difficulty breathing, blood in your stool, dizziness or fainting, or if you develop any other new or concerning symptoms as these could be signs of more serious medical illness. Try to stay well hydrated. <Argentina Roy MD - Last Filed: 05/14/25 06:51> Patient Language: Polish <Argentina Roy MD - Last Filed: 05/14/25 06:51> Prescriptions: New hydrocodone-acetaminophen 5-325 mg tablet 1 tablet PO Q6H PRN (Reason: pain) Qty: 12 0RF tamsulosin 0.4 mg capsule 0.4 mg PO DAILY Qty: 7 0RF ondansetron 4 mg tablet,disintegrating 4 mg PO Q6H PRN (Reason: nausea and vomiting) Qty: 10 0RF No Action (DME) [place] Syringe 3 mL 23 x 1 syringe See Rx Instructions .Route Qty: 15 3RF Rx Instructions: As directed monthly Coral Calcium 250-125-100 mg-mg-unit capsule 1 cap PO BID Chewable-Cassie Tablet,Chewable 1 tablet PO DAILY B-12 Compliance 1,000 mcg/mL kit 1,000 mcg IM MONTHLY metoprolol tartrate 100 mg tablet 100 mg PO BID Qty: 180 0RF amlodipine 5 mg tablet 5 mg PO DAILY Qty: 90 1RF Rx Instructions: at HS (DME) Resmed Airsense 11 CPAP 12 cm H2O with Resmed Air touch F20 full face mask with filters/tubing See Rx Instructions .Route .MEDSUPPLY Qty: 1 0RF Rx Instructions: As directed nightly Resmed Air sense 11 CPAP 12 cm H2O with Resmed Airtouch F20 full face mask and filter/tubing with heated humidified air. colchicine 0.6 mg tablet See Rx Instructions .ROUTE .COMPLEX Qty: 30 2RF Dose Instruction: TAKE 1 TABLET BY MOUTH TWICE DAILY NEEDED FOR GOUT FLARE Rx Instructions: TAKE 1 TABLET BY MOUTH TWICE DAILY NEEDED FOR GOUT FLARE sildenafil (pulm.hypertension) 20 mg tablet 20 mg PO TID Qty: 90 11RF ergocalciferol (vitamin D2) [Vitamin D2] 1,250 mcg (50,000 unit) capsule 1,250 mcg PO WEEKLY Qty: 12 3RF lisinopril 40 mg tablet 40 mg PO DAILY Qty: 90 3RF Wegovy 2.4 mg/0.75 mL pen injector 2.4 mg subcut WEEKLY Qty: 3 3RF allopurinol 100 mg tablet 100 mg PO DAILY Qty: 90 1RF <Argentina Roy MD - Last Filed: 05/14/25 06:51> Follow-up/Referrals: Marcela Gomez MD [Primary Care Provider] - Marek Weiss MD [Physician] - 1 Week <Argentina Roy MD - Last Filed: 05/14/25 06:51>
[2025-05-14] MEDS: ONDANSETRON INJ 4 MG/2 ML VIAL IV PUSH (06:49)
[2025-05-14] MEDS: SODIUM CHLORIDE 0.9% IV 1,000 ML 999 ML IV CONT (06:49)
[2025-05-14] MEDS: MORPHINE SULFATE (*CRX) 4 MG/ML INJ IV PUSH (06:50)
[2025-05-14 06:59] LABS: Hematocrit 40.9 % (42.0-52.0); Hemoglobin 13.1 g/dL (14.0-18.0); Immature Granulocyte Percent A 0.4 % (0-0.5); Lymphocytes Absolute Auto 1.01 K/mm3 (0.9-3.2); Mean Corpuscular HGB Conc 32.0 g/dl (32-36); Mean Corpuscular Hemoglobin 26.5 pg (26-34); Mean Corpuscular Volume 82.8 fl (80-100); Nucleated Red Blood Cells Absolute Auto 0.000 K/mm3 (0.0-0.012); Nucleated Red Blood Cells Perc 0.0 % (0.0-0.2); Platelet Count Result 236 k/mm3 (150-375); Red Blood Count 4.94 M/mm3 (4.6-6.20); White Blood Count 8.3 K/mm3 (4.5-10.0)
[2025-05-14 07:05] LABS: Add Urine Microscopic? YES; Appearance Urine Clear (Clear); Glucose Urine UA Negative (Negative); Leukocyte Esterase Ur 2+ LEU/UL (Negative); Nitrate Urine Negative (Negative); Non Pathogenic Casts 0-2; Specific Grav Ur 1.015 (1.001-1.035)
[2025-05-14 07:15] VITALS: BP 179/93; PULSE 78; RESP 19; O2SAT 95
--- NOTE | 2025-05-14 07:19 | PC.NURSE ---
assumed care of pt. Pt resting quietly in room
[2025-05-14] MEDS: KETOROLAC 15 MG/ML VIAL (*BKC) IV PUSH (08:17)
[2025-05-14 08:29] LABS: Alanine Aminotransferase 39 U/L (6-50); Albumin Level 4.2 g/dL (3.5-5.1); Alkaline Phosphatase 67 U/L (38-126); Anion Gap 10 mmol/L (4-12); Aspartate Amino Transferase 38 U/L (17-59); Bilirubin,Total 1.0 mg/dL (0.2-1.3); Blood Urea Nitrogen 12 mg/dL (9-20); Calcium 9.1 mg/dL (8.4-10.2); Carbon Dioxide 30 mmol/L (22-30); Chloride 100 mmol/L (98-107); Estimated CRCL calculation 97 ml/min; Estimated Glomerular Filt Rate > 60; Glucose 140 mg/dL (65-110); Lipase 94 U/L (23-300); Magnesium 2.0 mg/dL (1.6-2.3); Potassium 3.5 mmol/L (3.4-5.0); Sodium 140 mmol/L (137-145); Total Protein 7.9 g/dL (6.3-8.2)
[2025-05-14 08:32] VITALS: PULSE 79; RESP 20; O2SAT 100
[2025-05-14 09:27] VITALS: BP 141/78; PULSE 73; RESP 20; O2SAT 96
--- NOTE | 2025-05-14 09:29 | PC.NURSE ---
Crooks catheter removed intact with 800 ml of urine noted in bag. Pt tolerated well.
== END 2025-05-14 09:31 | disposition home or self-care (01) ==
PROVIDERS: Emergency Medicine; Emergency Provider Emergency Medicine; PCP Family Medicine
DX: N20.1 Calculus of ureter (principal); G47.30 Sleep apnea, unspecified; F41.9 Anxiety disorder, unspecified; I10 Essential (primary) hypertension; Z85.038 Personal history of other malignant neoplasm of large intestine
CPT/HCPCS: 36415; 74176; 80053; 81001; 83690; 83735; 85025; 87086; 96361; 96374; 96375; 99284; J1885; J2270; J2405; J7030